=== PATIENT | female | born 1955 | race Caucasian/White ===

== ENCOUNTER → 2017-12-26 12:30 | Outpatient (CLI) | payer OTHER, SELFPAY ==
[2017-12-31 15:07] LABS: HPV Reflexed? NOT INDICATED
== END ==
PROVIDERS: Family Provider Internal Medicine; PCP Internal Medicine; Visit Provider Obstetrics & Gynecology
DX: Z12.4 Encounter for screening for malignant neoplasm of cervix (principal)
CPT/HCPCS: 88175; G0145

== ENCOUNTER → 2018-05-01 10:11 | Outpatient (CLI) | payer OTHER, SELFPAY ==
--- NOTE | 2018-05-01 10:15 | BI_ITS ---
MAMMOGRAPHY - BILATERAL SCREENING REASON FOR EXAM: Female, 62 years old. Routine annual screening examination. PERTINENT HISTORY: Non-contributory. TECHNIQUE: Digital bilateral breast lilibeth (3D mammographic acquisition) in the CC and MLO projections. 2-D mediolateral oblique (MLO) and craniocaudad (CC) views of both breasts were obtained. CAD: Full Field Digital Mammography with Computer Added Detection was performed. COMPARISON: Comparison is made with prior examination dated March 29, 2017 and March 28, 2016. FINDINGS: Breast Composition: The breasts are heterogeneously dense, which may obscure small masses. There are no dominant masses or suspicious calcifications. No other significant abnormalities are identified. There has been no significant change since the prior study. BI/SCREENING MAMM (CAD), BILAT IMPRESSION: Stable bilateral screening mammogram. Yearly follow-up mammogram recommended. (A) ASSESSMENT CATEGORY: BIRADS Category 1: Negative. A letter regarding these results will be sent to the patient by the facility within 30 days. Approximately 10% of breast cancers are not detected by mammography. A normal mammogram should not delay biopsy of a clinically suspicious abnormality. [id number] Electronically Signed: James Ware MD at 14:12 EDT Tel [phone], Service support ,
== END ==
PROVIDERS: Family Provider Internal Medicine; PCP Internal Medicine; Visit Provider Obstetrics & Gynecology
DX: Z12.31 Encounter for screening mammogram for malignant neoplasm of breast (principal)
CPT/HCPCS: 77063; 77067

== ENCOUNTER → 2018-12-01 10:42 | Outpatient (CLI) | payer OTHER, SELFPAY ==
--- NOTE | 2018-12-01 10:44 | US_ITS ---
STUDY: THYROID ULTRASOUND REASON FOR EXAM: Female, 63 years old. Goiter TECHNIQUE: Ultrasound evaluation of the thyroid was performed with real-time and static wright-scale imaging. COMPARISON: 2014 FINDINGS: RIGHT LOBE: The right lobe of the thyroid gland measures 4.7 x 1.7 x 2.2 cm. There is a homogeneous echotexture. There is a stable complex 2.6 x 1.4 x 1.7 cm nodule LEFT LOBE: The left lobe of the thyroid gland measures 3.4 x 0.8 x 1.0 cm. There is a homogeneous echotexture. There are no demonstrated solid, cystic or complex lesions. ISTHMUS: The isthmus measures 1.8 mm. The regional lymph nodes are normal. US/Thyroid IMPRESSION: Normal sized homogeneous thyroid gland with stable 2.6 cm solid nodule in the right lobe. Electronically Signed: Vincent Luo MD at 15:46 EST , Service support ,
== END ==
PROVIDERS: Family Provider Internal Medicine; PCP Internal Medicine; Referring Provider Internal Medicine; Visit Provider Internal Medicine
DX: E04.1 Nontoxic single thyroid nodule (principal)
CPT/HCPCS: 76536

== ENCOUNTER → 2019-03-10 | Outpatient (CLI) | payer OTHER, SELFPAY ==
[2019-03-10 14:39] LABS: AST(SGOT) 23 U/L (15-37); Alanine Aminotransfer ALT/SGPT 31 U/L (13-56); Albumin, Serum 3.6 g/dL (3.2-5.0); Alkaline Phosphatase 92 U/L (45-117); Anion Gap 7 (5-15); BUN 17 mg/dL (7-18); BUN/Creat Ratio 22.8 RATIO (10-20); Calcium,Total 9.1 mg/dL (8.5-10.1); Chloride 107 mmol/L (98-107); Creatinine, Serum 0.74 mg/dL (0.55-1.02); EST Glomerular Filtration Rate 84 mL/min (>60); Est Glom Filt Rate - Afr Amer 101 mL/min (>60); Globulin 3.7 g/dL (2.2-4.2); Glucose 61 mg/dL (74-106); Potassium 3.9 mmol/L (3.5-5.1); Protein, Total 7.3 g/dL (6.4-8.2); Sodium Level 141 mmol/L (136-145); T4 Free Direct 1.11 ng/dL (0.76-1.46); Thyroid Stim Hormone (TSH) 3.21 uIU/mL (0.358-3.74)
== END | disposition home or self-care (01) ==
LOC: LAB 13:29
PROVIDERS: Family Provider Internal Medicine; PCP Internal Medicine; Referring Provider Internal Medicine Endocrinology, Diabetes & Metabolism; Visit Provider Internal Medicine Endocrinology, Diabetes & Metabolism
DX: E03.8 Other specified hypothyroidism (principal)
CPT/HCPCS: 36415; 80053; 84439; 84443

== ENCOUNTER 2019-04-06 18:25 | Observation (INO) | payer OTHER, SELFPAY ==
[2019-04-06 18:26] VITALS: BP 130/69; PULSE 126; RESP 16; TEMP 37.6; O2SAT 92; BMI 24.7
[2019-04-06 18:59] VITALS: BP 123/67; PULSE 102; PULSE 104; RESP 16; TEMP 39.1; O2SAT 96
--- NOTE | 2019-04-06 19:23 | EKG12_ITS ---
Test Reason : Blood Pressure : / mmHG Vent. Rate : 103 BPM Atrial Rate : 103 BPM P-R Int : 124 ms QRS Dur : 084 ms QT Int : 322 ms P-R-T Axes : -17 030 062 degrees QTc Int : 421 ms Sinus tachycardia with occasional Premature ventricular complexes Low Voltage QRS (Limb Leads) Nonspecific ST and T wave abnormality Abnormal ECG Confirmed by ELIO VAZQUEZ, YENY ([id number]), editorial director ERIK CLARK ([id number]) on 04/08/2019 8:04:16 AM Referred By: JOSE Confirmed By:YENY BALLARD MD
--- NOTE | 2019-04-06 19:30 | RAD_ITS ---
STUDY: X-RAY CHEST REASON FOR EXAM: Female, 63 years old. Body aches TECHNIQUE: Frontal view COMPARISON: None. FINDINGS: The lungs are expanded. There is a right basilar rounded opacity possibly an infiltrate. A masslike density cannot be excluded. Normal size heart. Normal mediastinum and mati. Normal visualized pulmonary arteries. Normal visualized aortic arch and descending thoracic aorta. Normal visualized thoracic spine. Normal visualized ribs, clavicles, and shoulders. There is no demonstrated abnormality of the visualized soft tissue structures of the upper abdomen. RAD/Chest 1 View (Portable) IMPRESSION: There is a right basilar rounded opacity possibly an infiltrate. A masslike density cannot be excluded. Correlate with CT if clinically indicated. Electronically Signed: Jarrett Becerra DO at 19:48 EDT Tel [phone], Service support ,
--- NOTE | 2019-04-06 19:40 | ED.VISSUMM ---
- ER Visit Summary Date of Service: 04/06/19 Chief Complaint: Body aches, fever History of Present Illness: The patient is a 63 F presenting with body aches, fever. Patient states she feels terrible. She complains of aching all over. She has had temperatures up to 104 at home. She complains of nonproductive cough. She has nausea with no vomiting. She denies abdominal pain or diarrhea. She has urinary frequency with no dysuria. She complains of headache. She states this is not the worst headache of her life. She states she has been taking Tylenol and this intermittently improves her headache. No recent trauma. No history of anticoagulant use. She has chest pain only when she coughs. Her son had fever and similar symptoms a week ago. She denies other complaints. Physical Examination: Vitals are stable. Temperature 102.4. Heart rate 107. Alert no acute distress. HEENT exam is unremarkable. Neck is supple. No meningismus Lungs are clear and equal bilaterally. Heart is regular and tachycardic Abdomen is soft nontender nondistended. No guarding or rebound Extremities are unremarkable. Skin is warm and dry. No focal neurologic deficit. Remainder of exam is unremarkable. Emergency Department Course and Treatment: Patient was given IV fluids, Benadryl, Reglan, Tylenol. CBC normal except for 86.7% segs. Chemistries show sodium 131, glucose 122, creatinine 1.03. Troponin is negative. Rapid strep and flu were negative. Chicot was negative. Urinalysis is pending. Chest x-ray shows there is a right basilar rounded opacity possibly an infiltrate. A masslike density cannot be excluded. Patient was given Rocephin and Zithromax IV. She continues to be tachypneic. Discussed with the hospitalist for admission. Disposition: Admit Impression: Febrile illness, pneumonia This note was generated with [employer] dictation software. It may contain incorrect words, spelling, and punctuation that were not noted in review of the chart prior to signing ED Disposition - Plan for ED Patient: Referrals: Skyla Crawford DO [Primary Care Provider] -
[2019-04-06] MEDS: Metoclopramide 10 MG/2 ML Vial 5 MG IV (19:44)
[2019-04-06] MEDS: DiphenhydrAMINE 50 MG/ML Syringe 25 MG IV (19:44)
[2019-04-06] MEDS: 0.9% Normal Saline 1,000 ML 1000 ML IV (19:44)
[2019-04-06] MEDS: Acetaminophen 500 MG Tablet 1000 MG PO (19:48)
[2019-04-06 20:03] LABS: Anion Gap 8 (5-15); BUN 15 mg/dL (7-18); BUN/Creat Ratio 14.6 RATIO (10-20); Calcium,Total 9.1 mg/dL (8.5-10.1); Chloride 100 mmol/L (98-107); Creatinine, Serum 1.03 mg/dL (0.55-1.02); EST Glomerular Filtration Rate 57 mL/min (>60); Est Glom Filt Rate - Afr Amer 70 mL/min (>60); Glucose 122 mg/dL (74-106); Potassium 3.6 mmol/L (3.5-5.1); Sodium Level 131 mmol/L (136-145)
[2019-04-06 20:07] LABS: Absolute Lymphocyte Count 0.59 X10^3/ul (0.83-4.51); Absolute Neutrophil Count 7.9 X10^3/uL (2.0-7.7); Basophil# 0.02 X10^3/uL; Basophil% 0.2 % (0-1); Hematocrit 43.4 % (37-47); Hemoglobin 14.7 g/dl (12.0-15.0); Lymphocyte # 0.59 X10^3/ul (4.0); Lymphocyte % 6.5 % (19-41); Mean Corp Hgb Conc 33.9 g/gl (32-36); Mean Corpuscular Hgb 29.6 pg (27.0-32.0); Mean Corpuscular Volume 87.5 fL (81-99); Mean Platelet Vol. 10.3 fl (6.2-12.0); Monocyte# 0.59 X10^3/uL; Monocyte% 6.5 % (0-10); Neutrophil # 7.85 X10^3/uL (2.7-7.7); Neutrophil % 86.7 % (47-70); Platelet Count 193 K/mm3 (150-450); RBC Distribution Width SD 41.6 fl (35.1-43.9); Red Blood Count 4.96 M/mm3 (4.2-5.4); White Blood Count 9.1 K/mm3 (4.4-11.0)
[2019-04-06 20:14] LABS: Differential Indicated SCAN CRITERIA MET; POSITIVE COUNT NO; POSITIVE DIFFERENTIAL YES; POSITIVE MORPHOLOGY NO
[2019-04-06 20:32] VITALS: BP 107/68; PULSE 96; RESP 27; TEMP 37.7; O2SAT 96
[2019-04-06 20:43] LABS: Color, Urine Yellow (Yellow); Glucose, Dipstick Normal (Normal); Ketone-Dipstick 50 mg/dl (Negative); Leukocyte Esterase-Dipstick 25 /ul (Negative); Nitrite-Dipstick Negative (Negative); Occult Blood-Urine 150 /ul (Negative); Protein-Dipstick 30 mg/dl (Negative); Urine Clarity Clear (Clear); Urine Urobilinogen 1 mg/dl (Normal)
[2019-04-06 20:50] LABS: Differential Comment SCANNED
[2019-04-06 21:02] LABS: Urine Bilirubin Dipstick 1 mg/dL (Negative)
[2019-04-06 21:04] LABS: Red Blood Cells-Urine 0-5 SEEN /hpf (0-5); White Blood Cells 0-5 SEEN /hpf (0-5)
[2019-04-06 21:05] LABS: Bacteria 1+ /hpf (None Seen); Mucous, Urine 2+ /hpf (<or=2+); Squamous Epithelial Cells - UA 0-5 SEEN /hpf (5-10)
[2019-04-06 22:11] VITALS: BP 101/70; PULSE 83; RESP 16; TEMP 36.7; O2SAT 94
[2019-04-06] MEDS: Ceftriaxone 1 GM/50 ML BAG IV (22:12)
--- NOTE | 2019-04-06 22:42 | PCM.HP.STD ---
Problem List (1) Sepsis Status: Acute Qualifiers: Sepsis type: sepsis due to unspecified organism Qualified Code(s): A41.9 - Sepsis, unspecified organism (2) Pneumonia Status: Acute Qualifiers: Pneumonia type: due to unspecified organism Laterality: unspecified laterality Lung location: unspecified part of lung Qualified Code(s): J18.9 - Pneumonia, unspecified organism (3) HLD (hyperlipidemia) Status: Chronic Qualifiers: Hyperlipidemia type: unspecified Qualified Code(s): E78.5 - Hyperlipidemia, unspecified (4) Hypothyroidism Status: Chronic Qualifiers: Hypothyroidism type: unspecified Qualified Code(s): E03.9 - Hypothyroidism, unspecified History of Present Illness Date of Admission: 04/06/19 Chief Complaint: URI symptoms The patient is a 63 y/o F w/ PMHx: HLD, Hypothyroidism who presents to the [facility] ED on 04/06/19 with history of progressively worsening fevers, myalgias, arthralgias, dry ongoing cough with headache x 3 days, not improving with fever worsening with son with similar illness actually 1 week prior. Her son had had also a sore throat but she denies any sore throat. Work-up in the ED included T initially 99.6 but increased up to 102.4 in the ED with improvement to 98.1 following Tylenol administration, heart rate initially 126 with improvement 83, BP 130/69, respiratory rate 16, 92% on room air, CBC with W BC 9.1, hemoglobin 14.7, platelet 193 with left shift, BMP with sodium 131, BUN/Cr 15/1.03, glucose 122, Trop < 0.015, urinalysis with evidence of dehydration, pending complete, blood culture x2 pending per ED, rapid influenza negative, rapid group A strep negative with confirmatory culture pending, chest x-ray with right basilar rounded opacities to suspicious for infiltrate although masslike density cannot be excluded. In the ED patient administered normal saline, Reglan, Benadryl, Rocephin, azithromycin and Tylenol. Past Medical History Past Medical History (Chronic Problems): Chronic Problems HLD (hyperlipidemia) (Chronic) Hypothyroidism (Chronic) Allergies No Known Allergies Allergy (Verified 04/06/19 18:31) Home Medications: Ambulatory Orders Medication Instructions Recorded Atorvastatin Calcium [Lipitor] 10 mg PO QHS 04/06/19 Levothyroxine [Synthroid] 100 mcg PO DAILY 04/06/19 Surgical History: - - Morris teeth extraction, lap or scopic surgery prior for evaluation for infertility work-up. Psychiatric History: No pertinent psych hx HEAD OF [employer]IS[employer]CHAND[employer] History: No pertinent HEAD OF [employer]IS[employer]CH[employer] history Lives: Spouse/ Significant Other Smoking Status: Never smoker Tobacco Use: Non-smoker Alcohol: None Drugs: None - *Family History Maternal History Items: - - Patient is a maternal family history of heart disease, paroxysmal atrial fibrillation. Paternal History Items: - - Patient denies any market paternal family history including heart disease, diabetes or cancer. Review of Systems Constitutional: Reports: Anorexia, Chills, Fever, Malaise, Weakness, Fatigue. Denies: Weight Change HEENT: Denies: Head Aches, Sinus Congestion, Sinus Drainage Cardiovascular: Denies: Chest Pain, Palpitations Respiratory: Reports: Cough, Shortness of Breath, Shortness of breath at rest, Shortness of breath upon exertion. Denies: Sputum production Gastrointestinal: Reports: Nausea. Denies: Abdominal Pain, Vomiting Genitourinary: Denies: Dysuria Musculoskeletal: Reports: Joint Pain, Muscle pain. Denies: Joint Tenderness Skin: Denies: Rash, Wounds Neurological: Denies: Numbness, Tingling, Focal weakness Psychiatric: Denies: Anxiety, Depression, Homicidal Ideations, Suicidal Ideations Hematologic/ Lymphatic: Denies: Easy Bruising, Easy Bleeding VTE Information - Inpt Only VTE Present on Admission: No VTE Mechan Device Prophylaxis: SCD's VTE Pharm Prophylaxis ordered?: Yes Patient Problems: Active and Suspected Problems Sepsis (Acute) Pneumonia (Acute) Subjective: Seated upright in ED bed, fatigued appearing, ill-appearing. Objective: Physical Examination: General: awake, alert, oriented x 3 and cooperative, seated upright in ED bed, fatigued and ill-appearing. Skin: normal color, turgor, no icterus, cyanosis. HEENT: AT/NC, EOMI, PERRLA, dry MM, no carotid bruits or JVD noted. Lungs: Diminished breath sounds bilaterally, greater bilateral bases, right greater than left, rhonchorous breath sounds right base to mid posterior lung field, no wheezing. Heart: Mildly tachycardic with regular rhythm; no gallop, rub audible. Abdomen: soft, NTTP, ND, normal BS, no HSM. Extremities: no cyanosis, clubbing, or edema. Neurological: patient awake, alert, oriented x 3; cognitive function intact; pupils equally reactive to light and accomodation; cranial nerves II-XII grossly normal, moving all 4 extremities, no focal deficits, strength moderately to severe legal decrease secondary to acute presentation. Psychiatric: affect appears fatigued, no acute evidence of depressive or anxiety feelings. - Physical Exam Vital Signs Temp Pulse Resp BP Pulse Ox 98.1 F 83 16 101/70 94 04/06/19 22:11 04/06/19 22:11 04/06/19 22:11 04/06/19 22:11 04/06/19 22:11 Oxygen Flow Rate (L/min) 2 Oxygen Delivery Method Room Air Weight: 163 lb Body Mass Index (BMI) 24.7 Microbiology Past 72 Hours 04/06/19 20:30 Influenza Types A,B Direct FA ([facility]LIN) - Final Mucosa - Nasopharyngeal 04/06/19 20:35 Group A Streptococcus Rapid Screen - Preliminary Mucosa - Oral Laboratory Tests Past 24 Hrs 04/06/19 04/06/19 04/06/19 19:18 19:18 20:23 WBC 9.1 RBC 4.96 Hgb 14.7 Hct 43.4 MCV 87.5 MCH 29.6 MCHC 33.9 RDW 13.0 RDW Differential 41.6 Plt Count 193 MPV 10.3 Immature Gran % (Auto) 0.100 Neut % (Auto) 86.7 H Lymph % (Auto) 6.5 L Screven % (Auto) 6.5 Eos % (Auto) 0.0 Baso % (Auto) 0.2 Absolute Neuts (auto) 7.9 H Absolute Lymphs (auto) 0.59 L Total Counted Not Reportable Differential Comment SCANNED Sodium 131 L Potassium 3.6 Chloride 100 Carbon Dioxide 23.0 Anion Gap 8 BUN 15 Creatinine 1.03 H Estim Creat Clear Calc 56.40 Est GFR (MDRD) Af Amer 70 Est GFR (MDRD) Non-Af 57 L BUN/Creatinine Ratio 14.6 Glucose 122 H Calcium 9.1 Troponin I < 0.015 Urine Color Yellow Urine Clarity Clear Urine pH 5.0 Ur Specific [place] 1.020 Urine Protein 30 H Urine Glucose (UA) Normal Urine Ketones 50 H Urine Occult Blood 150 H Urine Nitrite Negative Urine Bilirubin 1 H Urine Urobilinogen 1 H Ur Leukocyte Esterase 25 H Urine RBC Pending Urine WBC Pending Ur Squamous Epith Cells Pending Urine Bacteria Pending Urine Mucus Pending Assessment/Plan All Active Problems Sepsis (Acute) Pneumonia (Acute) The patient is a 63 y/o F w/ PMHx: HLD, Hypothyroidism who presents to the [facility] ED on 04/06/19 with history of progressively worsening fevers, myalgias, arthralgias, dry ongoing cough with headache x 3 days, not improving with fever worsening with son with similar illness actually 1 week prior. (1) Acute Sepsis secondary to Community Acquired Pneumonia: Work-up in the ED included T initially 99.6 but increased up to 102.4 in the ED with improvement to 98.1 following Tylenol administration, heart rate initially 126 with improvement 83, BP 130/69, respiratory rate 16, 92% on room air, CBC with W BC 9.1, hemoglobin 14.7, platelet 193 with left shift, BMP with sodium 131, BUN/Cr 15/1.03, glucose 122, Trop < 0.015, urinalysis with evidence of dehydration, pending complete, blood culture x2 pending per ED, rapid influenza negative, rapid group A strep negative with confirmatory culture pending, chest x-ray with right basilar rounded opacities to suspicious for infiltrate although masslike density cannot be excluded. Will admit to [facility], maintain on oxygen with wean as tolerated to room air, continue ATC duonebs, PRN albuterol, maintained on IV Rocephin and Azithromycin, HOB, IS parameters w/ pending sputum cultures and urine antigens as well as respiratory viral panel. Bld cx x 2 obtained in the ED. (2) Hypothyroidism: Continue home synthroid regimen. (3) Hyperlipidemia: Continue home statin regimen. (4) GERD: Famotidine. (5) DVT Prophylaxis: SCDs, lovenox. Code Visit Inpatient E&M: 07587 Init Hosp L3
[2019-04-06 23:01] LABS: Internal QC Validated? YES +Cl - CLEAR BKGD; Monotest Negative (Negative)
[2019-04-07] VITALS (7 sets, daily range): BP systolic 117–119; BP diastolic 51–65; PULSE 92–106; RESP 16–18; TEMP 37.2–38; O2SAT 93–97; BMI 24.2
[2019-04-07] MEDS: 0.9% Normal Saline 1,000 ML 125 ML IV ×2 (01:24→10:07)
[2019-04-07] MEDS: Atorvastatin Calcium 10 MG Tablet PO (01:24)
[2019-04-07] MEDS: guaiFENesin 10 ML UDC (200MG/10ML) 20 ML PO (05:07)
[2019-04-07] MEDS: Levothyroxine 100 MCG Tablet PO (05:07)
[2019-04-07 06:26] LABS: Absolute Lymphocyte Count 0.64 X10^3/ul (0.83-4.51); Absolute Neutrophil Count 5.6 X10^3/uL (2.0-7.7); Basophil# 0.01 X10^3/uL; Basophil% 0.1 % (0-1); Hematocrit 38.7 % (37-47); Lymphocyte # 0.64 X10^3/ul (4.0); Lymphocyte % 9.5 % (19-41); Mean Corp Hgb Conc 33.6 g/gl (32-36); Mean Corpuscular Hgb 28.8 pg (27.0-32.0); Mean Corpuscular Volume 85.6 fL (81-99); Mean Platelet Vol. 9.8 fl (6.2-12.0); Monocyte# 0.44 X10^3/uL; Monocyte% 6.5 % (0-10); Neutrophil # 5.63 X10^3/uL (2.7-7.7); Neutrophil % 83.8 % (47-70); Platelet Count 168 K/mm3 (150-450); RBC Distribution Width SD 40.5 fl (35.1-43.9); Red Blood Count 4.52 M/mm3 (4.2-5.4); White Blood Count 6.7 K/mm3 (4.4-11.0)
[2019-04-07 06:28] LABS: POSITIVE COUNT NO; POSITIVE DIFFERENTIAL NO; POSITIVE MORPHOLOGY NO
[2019-04-07 06:47] LABS: Anion Gap 8 (5-15); BUN 13 mg/dL (7-18); BUN/Creat Ratio 17.6 RATIO (10-20); Calcium,Total 8.2 mg/dL (8.5-10.1); Chloride 105 mmol/L (98-107); Creatinine, Serum 0.74 mg/dL (0.55-1.02); EST Glomerular Filtration Rate 85 mL/min (>60); Est Glom Filt Rate - Afr Amer 102 mL/min (>60); Glucose 136 mg/dL (74-106); Potassium 3.3 mmol/L (3.5-5.1); Sodium Level 135 mmol/L (136-145)
[2019-04-07] MEDS: Ipratropium/Albuterol Sulfate 3 ML AMPUL.NEB INHALATION ×3 (07:02→14:46)
[2019-04-07] MEDS: Acetaminophen 325 MG Tablet 650 MG PO (08:14)
[2019-04-07] MEDS: Ondansetron 4 MG/2 ML Vial IV (08:15)
[2019-04-07] MEDS: Enoxaparin 40 MG/0.4 ML Syringe SC (08:15)
[2019-04-07] MEDS: Famotidine 20 MG Tablet PO (08:15)
--- NOTE | 2019-04-07 10:34 | CASEMGMT ---
RN CM Assessment Presentation: Pneumonia Intro role of CM and purpose of RN CM assessment. Pt is awake, alert and able to participate in assessment. Demographics, PCP and Pharmacy verified. Pt states she is very independent and plans to return home on dc. PCP: Dr. 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 Entered in chart. Insurance: MMO Prescription Benefit: yes LNOK: , Jatin Still Living Arrangements: Lives independently with her . Denies any care needs. Transportation: Drives DME: none HHC: none Patient DC goals: Home DC PLAN: Home. No dc needs identified. Campbell REYNAN RN ACM
--- NOTE | 2019-04-07 16:19 | DCINST_ITS ---
- Discharge Diagnoses Current Active Problems: Current Active and Chronic Problems Sepsis (Acute) Pneumonia (Acute) HLD (hyperlipidemia) (Chronic) Hypothyroidism (Chronic) You will use the following diet at home:: No restrictions Your food should be the consistency of: Regular Your liquids should be the consistency of: Regular/Thin Discharge Activity: Return to Normal Activity Weight Bearing Status: Full weight bearing Allergies/Adverse Reactions: Allergies No Known Allergies Allergy (Verified 04/06/19 18:31) Medications to take at Discharge Atorvastatin Calcium [Lipitor] 10 mg PO QHS 04/06/19 Levothyroxine [Synthroid] 100 mcg PO DAILY 04/06/19 Levofloxacin [Levaquin] 750 mg PO DAILY #6 tab 04/07/19 The following prescriptions were given: Levofloxacin [Levaquin] 750 mg PO DAILY #6 tab Transmission Status: Sent to [facility] Primary Care Physician: Skyla Crawford DO [Primary Care Provider] - Please follow up with your Primary Care Physician in: next week-get a chest x- ray repeated Test Results: Test results from this visit will be discussed in further detail at your follow- up appointment, if applicable.
--- NOTE | 2019-04-08 09:32 | PCM.DC.SUM ---
Discharge Date and Diagnosis Date of Admission: 04/06/19 Date of Discharge: 04/07/19 - Primary Discharge Diagnosis #1 acute sepsis secondary to community-acquired [id number]-[id number]-doesekyg bacterial #2 adenovirus tracheobronchitis #3 hypothyroidism #4 hyperlipidemia - Secondary Discharge Diagnosis Chronic Problems HLD (hyperlipidemia) (Chronic) Hypothyroidism (Chronic) Hospital Course and Treatment Operations: None Procedures: None Summary of Care Provided: The patient is a 63 year old F was seen in the emergency room at [facility] with a chief complaint of body aches, fever, and dry cough. Work-up in the emergency room included a chest x-ray which showed evidence of a right basilar opacity in keeping with pneumonia, chemistries showed a sodium of 131 glucose of 122 and creatinine of 1.03. Rapid strep and flu were negative. [place] test was negative. CBC was unremarkable. Patient was given IV Rocephin and Zithromax in the emergency room and she was admitted to [place] [address] for community-acquired pneumonia. She was given aerosol treatments and continued IV antibiotics, a respiratory panel was obtained which was positive for adenovirus. On 04/07/2019, patient was seen and examined: On examination she appeared in good health and spirits. Vital signs as documented. Skin warm and dry and without overt rashes. Neck without JVD. Lungs-faint inspiratory rales were noted at the patient's right lung base on auscultation. Heart exam notable for regular rhythm, normal sounds and absence of murmurs, rubs or gallops. Abdomen unremarkable and without evidence of organomegaly, masses, or abdominal aortic enlargement. Extremities nonedematous. Neuro: Cranial nerves II through XII are grossly intact, no focal motor deficits were noted, sensation to light touch and pinprick is intact. Psych: Patient is alert and oriented x3, she does not appear anxious or depressed Patient appeared stable for discharge on 04/07/2019, it was believed that she had a concomitant upper respiratory tract infection with adenovirus in addition to her right lower lobe pneumonia. - Physical Exam Vital Signs Temp Pulse Resp BP Pulse Ox 100.4 F H 92 18 118/65 97 04/07/19 14:29 04/07/19 14:46 04/07/19 14:46 04/07/19 14:29 04/07/19 14:29 Oxygen Flow Rate (L/min) 2 Oxygen Delivery Method Room Air Weight: 72.2 kg Body Mass Index (BMI) 24.2 Intake and Output for Last 24 Hours 04/06/19 04/07/19 04/08/19 23:59 23:59 23:59 Intake Total 2282 / 2282 Balance 2282 / 2282 Microbiology Past 72 Hours 04/07/19 12:15 Respiratory Panel (PCR) - Final Mucosa - Nose Adenovirus 04/06/19 20:35 Group A Streptococcus Rapid Screen - Preliminary Mucosa - Oral 04/07/19 06:20 Streptococcus pneumoniae Antigen (M - Final Urine, Clean Catch 04/07/19 06:20 Legionella Antigen - Final Urine, Random 04/06/19 20:30 Influenza Types A,B Direct FA ([facility]) - Final Mucosa - Nasopharyngeal Discharge Activity: Return to Normal Activity Weight Bearing Status: Full weight bearing Home Medications: Medications to take at Discharge Atorvastatin Calcium [Lipitor] 10 mg PO QHS 04/06/19 Levothyroxine [Synthroid] 100 mcg PO DAILY 04/06/19 Levofloxacin [Levaquin] 750 mg PO DAILY #6 tab 04/07/19 Ondansetron HCl [Zofran] 4 mg PO 4X/DAY PRN PRN #15 tab 04/07/19 Following Prescrptions Were Given to Patient: Levofloxacin [Levaquin] 750 mg PO DAILY #6 tab Transmission Status: Received by [facility] Ondansetron HCl [Zofran] 4 mg PO 4X/DAY PRN PRN #15 tab PRN Reason: Nausea Transmission Status: Received by [facility] Primary Care Physician: Skyla Crawford DO [Primary Care Provider] - Please follow up with your Primary Care Physician in: next week-get a chest x-ray repeated Disposition: Home Minutes spent on discharge:: 32 Patient Condition:: Stable Medical Necessity - Tobacco Use Smoking Status: Never smoker Tobacco Use: Non-smoker Meaningful Use Info Meaningful Use Diagnoses (Choose all that apply): None applicable Code Visit OBSV E&M: 61797 Observation care discharge
== END 2019-04-07 17:42 | disposition home or self-care (01) ==
LOC: ED 20:03 → MS3 23:58
PROVIDERS: Admitting Provider Family Medicine; Emergency Provider Emergency Medicine; Family Provider Internal Medicine; PCP Internal Medicine; Visit Provider Internal Medicine
DX: A41.9 Sepsis, unspecified organism (principal); J15.9 Unspecified bacterial pneumonia; E03.9 Hypothyroidism, unspecified; E78.5 Hyperlipidemia, unspecified; J20.8 Acute bronchitis due to other specified organisms; B97.0 Adenovirus as the cause of diseases classified elsewhere; R35.0 Frequency of micturition; Z79.899 Other long term (current) drug therapy; K21.9 Gastro-esophageal reflux disease without esophagitis; R94.31 Abnormal electrocardiogram [ECG] [EKG]
CPT/HCPCS: 36415; 71045; 80048; 81001; 84484; 85025; 86308; 87040; 87449; 87633; 87804; 87880; 93005; 94640; 94667; 94668; 96361; 96365; 96367; 96372; 96375; 96376; 99218; 99285; J7030; A4216; G0378; J2405

== ENCOUNTER → 2019-04-17 | Outpatient (CLI) | payer OTHER, SELFPAY ==
[2019-04-07 00:26] VITALS: BMI 24.2
--- NOTE | 2019-04-17 07:23 | CT_ITS ---
STUDY: CT CHEST WITH CONTRAST REASON FOR EXAM: Female, 63 years old. Abnormal chest x-ray, history of pneumonia with sepsis RADIATION DOSAGE (If Supplied By Facility): CTDIvol = ( 11.20 ) mGy, DLP = ( 317.73 ) mGycm TECHNIQUE: Transaxial imaging was performed following intravenous administration of 100ml IV Isovue 250. Individualized dose optimization techniques were used for this CT. COMPARISON: None. FINDINGS: There is a right lower lobe consolidation containing some air bronchograms. There is no demonstrated pleural abnormality. The heart size is within normal limits. There is a trace pericardial effusion. Normal mediastinum. Normal hilar regions. Normal enhanced pulmonary arteries. Normal aorta arch and descending thoracic aorta. There are degenerative changes of the visualized lower cervical spine. There is no demonstrated abnormality of the visualized upper abdomen. CT/Chest WITH Contrast IMPRESSION: Right lower lobe consolidation containing some air bronchograms. Findings are more likely represent pneumonic process and/or atelectasis. Underlying neoplastic process cannot be excluded. Close interval follow-up CT is recommended to assess for resolution. Trace pericardial effusion. Degenerative changes of the visualized lower cervical spine. Electronically Signed: Shai Slater MD at 17:07 EDT , Service support ,
== END | disposition home or self-care (01) ==
LOC: CT 07:22
PROVIDERS: Family Provider Internal Medicine; PCP Internal Medicine; Referring Provider Internal Medicine; Visit Provider Internal Medicine
DX: R93.89 Abnormal findings on diagnostic imaging of other specified body structures (principal)
CPT/HCPCS: 71260; Q9967

== ENCOUNTER → 2019-05-15 | Outpatient (CLI) | payer OTHER, SELFPAY ==
[2019-04-07 00:26] VITALS: BMI 24.2
--- NOTE | 2019-05-15 08:24 | BI_ITS ---
MAMMOGRAPHY - BILATERAL SCREENING REASON FOR EXAM: Female, 63 years old. Routine annual screening examination. PERTINENT HISTORY: Non-contributory. TECHNIQUE: Digital bilateral breast ralph (3D mammographic acquisition) in the CC and MLO projections. 2-D mediolateral oblique (MLO) and craniocaudad (CC) views of both breasts were obtained. CAD: Full Field Digital Mammography with Computer Added Detection was performed. COMPARISON: Comparison is made with prior examination dated May 01, 2000 8:15 and March 29, 2017. FINDINGS: Breast Composition: The breasts are heterogeneously dense, which may obscure small masses. There are no dominant masses or suspicious calcifications. No other significant abnormalities are identified. There has been no significant change since the prior study. BI/SCREEN MAMM (CAD) W/RALPH BILAT IMPRESSION: Stable bilateral screening mammogram. Yearly follow-up mammogram recommended. (A) ASSESSMENT CATEGORY: BIRADS Category 1: Negative. A letter regarding these results will be sent to the patient by the facility within 30 days. Approximately 10% of breast cancers are not detected by mammography. A normal mammogram should not delay biopsy of a clinically suspicious abnormality. [id number] Electronically Signed: James Ware, at 10:06 EDT , Service support ,
== END | disposition home or self-care (01) ==
LOC: OPBI 08:23
PROVIDERS: Family Provider Internal Medicine; PCP Internal Medicine; Referring Provider Obstetrics & Gynecology; Visit Provider Obstetrics & Gynecology
DX: Z12.31 Encounter for screening mammogram for malignant neoplasm of breast (principal)
CPT/HCPCS: 77063; 77067

== ENCOUNTER → 2019-06-01 | Outpatient (CLI) | payer OTHER, SELFPAY ==
[2019-04-07 00:26] VITALS: BMI 24.2
[2019-06-01 13:28] LABS: Vitamin D,25 Hydroxy 32.4 ng/mL (29.95-100.01)
[2019-06-01 13:29] LABS: ALB/GLOB Ratio 0.9 RATIO (0.9-2.4); AST(SGOT) 22 U/L (15-37); Alanine Aminotransfer ALT/SGPT 30 U/L (13-56); Albumin, Serum 3.6 g/dL (3.2-5.0); Alkaline Phosphatase 90 U/L (45-117); Anion Gap 2 (5-15); BUN 14 mg/dL (7-18); BUN/Creat Ratio 18.5 RATIO (10-20); Calcium,Total 8.8 mg/dL (8.5-10.1); Chloride 109 mmol/L (98-107); Creatinine, Serum 0.76 mg/dL (0.55-1.02); EST Glomerular Filtration Rate 82 mL/min (>60); Est Glom Filt Rate - Afr Amer 99 mL/min (>60); Glucose 73 mg/dL (74-106); Potassium 4.3 mmol/L (3.5-5.1); Protein, Total 7.6 g/dL (6.4-8.2); Sodium Level 141 mmol/L (136-145); Thyroid Stim Hormone (TSH) 1.56 uIU/mL (0.358-3.74)
== END | disposition home or self-care (01) ==
LOC: LAB 12:17
PROVIDERS: Family Provider Internal Medicine; PCP Internal Medicine; Referring Provider Internal Medicine Endocrinology, Diabetes & Metabolism; Visit Provider Internal Medicine Endocrinology, Diabetes & Metabolism
DX: E03.8 Other specified hypothyroidism (principal); E55.9 Vitamin D deficiency, unspecified
CPT/HCPCS: 36415; 80053; 82306; 84443

== ENCOUNTER → 2019-06-23 07:40 | Outpatient (CLI) | payer OTHER, SELFPAY ==
[2019-04-07 00:26] VITALS: BMI 24.2
--- NOTE | 2019-06-23 07:42 | CT_ITS ---
STUDY: CT CHEST WITH CONTRAST REASON FOR EXAM: Female, 63 years old. Sepsis secondary to pneumonia. Follow-up. RADIATION DOSAGE (If Supplied By Facility): CTDIvol = ( 11.14 ) mGy, DLP = ( 451.19 ) mGycm TECHNIQUE: Transaxial imaging was performed following intravenous administration of 100 IV Isovue 300. Multiplanar coronal and sagittal images were reformatted. Individualized dose optimization techniques were used for this CT. COMPARISON: CT of the chest, April 17, 2019. FINDINGS: The lungs are normal. There is no demonstrated pleural abnormality. Normal heart and pericardium. Normal mediastinum. Normal hilar regions. Normal enhanced pulmonary arteries. Normal aorta arch and descending thoracic aorta. Stable osseous structures. There is no demonstrated abnormality of the visualized upper abdomen. CT/Chest WITH Contrast IMPRESSION: Normal enhanced CT Chest examination. There is resolution of the right lower lobe infiltrate and pericardial effusion seen on the previous study. There are no new findings. Electronically Signed: Ponce Meek DO at 17:01 EDT Tel [phone], Service support ,
== END ==
PROVIDERS: Family Provider Internal Medicine; PCP Internal Medicine; Referring Provider Internal Medicine; Visit Provider Internal Medicine
DX: J18.9 Pneumonia, unspecified organism (principal)
CPT/HCPCS: 71260

== ENCOUNTER → 2020-05-20 08:04 | Outpatient (CLI) | payer OTHER, SELFPAY ==
[2019-04-07 00:26] VITALS: BMI 24.2
--- NOTE | 2020-05-20 08:18 | BI_ITS ---
MAMMOGRAPHY - BILATERAL SCREENING REASON FOR EXAM: Female, 64 years old. Routine annual screening examination. PERTINENT HISTORY: Non-contributory. TECHNIQUE: Digital bilateral breast ralph (3D mammographic acquisition) in the CC and MLO projections. 2-D mediolateral oblique (MLO) and craniocaudad (CC) views of both breasts were obtained. CAD: Full Field Digital Mammography with Computer Added Detection was performed. COMPARISON: Comparison is made with prior study dated 05/15/2019 and 05/01/2018. FINDINGS: Breast Composition: The breasts are heterogeneously dense, which may obscure small masses. There are no dominant masses or suspicious calcifications. Stable small benign appearing bilateral axillary lymph nodes. No other significant abnormalities are identified. There has been no significant change since the prior study. BI/SCREEN MAMM (CAD) W/RALPH BILAT IMPRESSION: Stable bilateral screening mammogram. Yearly follow-up mammogram recommended. (A) ASSESSMENT CATEGORY: BIRADS Category 2: Benign. A letter regarding these results will be sent to the patient by the facility within 30 days. Approximately 10% of breast cancers are not detected by mammography. A normal mammogram should not delay biopsy of a clinically suspicious abnormality. [id number] Electronically Signed: James Ware, at 10:32 EDT , Service support ,
== END ==
PROVIDERS: PCP Internal Medicine; Referring Provider Internal Medicine; Visit Provider Internal Medicine
DX: Z12.31 Encounter for screening mammogram for malignant neoplasm of breast (principal)
CPT/HCPCS: 77063; 77067

== ENCOUNTER → 2021-03-30 08:02 | Outpatient (CLI) | payer MEDICARE, BC, SELFPAY ==
[2019-04-07 00:26] VITALS: BMI 24.2
--- NOTE | 2021-03-30 08:04 | US_ITS ---
STUDY: ULTRASOUND OF THE FEMALE PELVIS - COMPLETE REASON FOR EXAM: Female, 65 years old. Pelvic pain. LMP: Patient is postmenopausal. TECHNIQUE: Transabdominal and Transvaginal TECHNICAL QUALITY: Adequate. COMPARISON: Comparison is made with prior study dated 11/16/2011. FINDINGS: The uterus is anteverted and is in a midline position. The uterus measures 6.2 cm x 5.2 cm x 3 cm. There is a Nabothian cyst of the cervix. The endometrium measures 7 mm in thickness, and is hyperechoic. There is no demonstrated endometrial mass. There is no demonstrated myometrial mass. I.U.D. - The patient does not have an I.U.D. The right ovary is visualized. The right ovary measures 1.4 cm x 1.4 cm x 1 cm. There is no right ovarian cyst or ovarian mass. There is no visualized right adnexal mass or complex lesion. There is normal arterial and normal venous vascularity. The left ovary is non-visualized. There is no fluid in the cul-de-sac. The pre void volume of the bladder was 360 ml. The post void volume of the bladder was ml. US/Pelvic (Non ) IMPRESSION: Normal female pelvis. Electronically Signed: James Ware MD at 11:14 EDT , Service support ,
--- NOTE | 2021-03-30 08:05 | US_ITS ---
STUDY: ULTRASOUND OF THE FEMALE PELVIS - COMPLETE REASON FOR EXAM: Female, 65 years old. Pelvic pain. LMP: Patient is postmenopausal. TECHNIQUE: Transabdominal and Transvaginal TECHNICAL QUALITY: Adequate. COMPARISON: Comparison is made with prior study dated 11/16/2011. FINDINGS: The uterus is anteverted and is in a midline position. The uterus measures 6.2 cm x 5.2 cm x 3 cm. There is a Nabothian cyst of the cervix. The endometrium measures 7 mm in thickness, and is hyperechoic. There is no demonstrated endometrial mass. There is no demonstrated myometrial mass. I.U.D. - The patient does not have an I.U.D. The right ovary is visualized. The right ovary measures 1.4 cm x 1.4 cm x 1 cm. There is no right ovarian cyst or ovarian mass. There is no visualized right adnexal mass or complex lesion. There is normal arterial and normal venous vascularity. The left ovary is non-visualized. There is no fluid in the cul-de-sac. The pre void volume of the bladder was 360 ml. The post void volume of the bladder was ml. US/Transvaginal Non- IMPRESSION: Normal female pelvis. Electronically Signed: James Ware MD at 11:14 EDT , Service support ,
== END ==
PROVIDERS: PCP Internal Medicine; Referring Provider Internal Medicine; Visit Provider Internal Medicine
DX: R10.2 Pelvic and perineal pain (principal)
CPT/HCPCS: 76830; 76856

== ENCOUNTER → 2021-06-12 07:53 | Outpatient (CLI) | payer MEDICARE, BC, SELFPAY ==
[2019-04-07 00:26] VITALS: BMI 24.2
--- NOTE | 2021-06-12 07:56 | BI_ITS ---
MAMMOGRAPHY - BILATERAL SCREENING 3-D TOMOSYNTHESIS REASON FOR EXAM: Female, 65 years old. SCREENING PERTINENT HISTORY: No significant family history. TECHNIQUE: 2-D mammograms and 3-D Tomosynthesis of the breast (s) were performed. CAD was performed. COMPARISON: 05/20/2020 FINDINGS: The breast composition is Extermely dense tissue. Scattered benign calcifications are seen. No dense spiculated masses or suspicious microcalcifications are identified. No architectural distortion is identified. There is no skin thickening or retraction. There has been no significant change since the prior study. BI/SCRN MAMM (CAD)W/RALPH BILAT IMPRESSION: No mammographic signs of malignancy. Routine yearly mammograms recommended. ASSESSMENT CATEGORY: BIRADS Category 1: Negative. A letter regarding these results will be sent to the patient by the facility within 30 days. FOLLOW UP RECOMMENDATION: Yearly follow up mammogram recommended. (A) Approximately 10% of breast cancers are not detected by mammography. A normal mammogram should not delay biopsy of a clinically suspicious abnormality. Electronically Signed: Dayday Bennett MD at 9:21 EDT Tel , Service support ,
== END ==
PROVIDERS: PCP Internal Medicine; Referring Provider Internal Medicine; Visit Provider Internal Medicine
DX: Z12.31 Encounter for screening mammogram for malignant neoplasm of breast (principal)
CPT/HCPCS: 77063; 77067

== ENCOUNTER → 2022-04-23 | Outpatient (CLI) | payer MEDICARE, BC, SELFPAY ==
--- NOTE | 2022-04-23 15:44 | CT_ITS ---
EXAM: CT ANGIOGRAPHY CHEST WITHOUT AND WITH INTRAVENOUS CONTRAST CLINICAL INDICATION: SYNCOPE AND COLLAPSE TECHNIQUE: Helically acquired angiography images were obtained of the chest without and with intravenous contrast. This CT exam was performed using one or more of the following dose reduction techniques: automated exposure control, adjustment of the mA and/or kV according to patient size, and/or use of iterative reconstruction technique. This report was created using [employer] report generation technology. MIP reconstructed images were created and reviewed. CONTRAST: IV 100mL Isovue-370 COMPARISON: None. FINDINGS: PULMONARY ARTERIES: Unremarkable. Normal in caliber. No evidence of pulmonary embolism. AORTA: Unremarkable. Normal in caliber. No evidence of dissection. GREAT VESSELS OF AORTIC ARCH: Unremarkable. Normal in caliber. No evidence of dissection. LUNGS AND PLEURAL SPACES: Unremarkable. No mass. No consolidation or edema. No pleural effusion or thickening. No pneumothorax. HEART: Unremarkable. Heart size is normal. No pericardial effusion. No signs of right heart strain, ratio of right ventricle to left ventricle measures less than 1. MEDIASTINUM: Unremarkable. No mediastinal or hilar adenopathy. Esophagus is unremarkable. No hiatal hernia. THYROID: Unremarkable. No thyroid lesions. BONES/JOINTS: Unremarkable. No suspicious lytic or blastic abnormality. CT/CTA Chest W/WO Contrast IMPRESSION: Negative CTA chest. Electronically Signed: Nilay Mosqueda MD at 17:35 EDT ,
[2022-04-23 16:25] LABS: CREATININE FINGERSTICK < 0.9 mg/dL (0.55-1.02); EGFR FINGERSTICK > 60.0000 mL/min (>60)
== END | disposition home or self-care (01) ==
LOC: CT 15:42
PROVIDERS: PCP Internal Medicine; Referring Provider Internal Medicine; Visit Provider Internal Medicine
DX: R55 Syncope and collapse (principal)
CPT/HCPCS: 71275; Q9967

== ENCOUNTER → 2022-04-25 | Outpatient (CLI) | payer MEDICARE, BC, SELFPAY ==
--- NOTE | 2022-04-25 07:24 | MRI_ITS ---
STUDY: MRA OF THE HEAD WITHOUT CONTRAST REASON FOR EXAM: Female, 66 years old. Cerebral aneurysm screening.? Aortic dissection. TECHNIQUE: 3-D xurp-in-eejrcw (TOF) imaging was performed with MIPs. The study was performed unenhanced. COMPARISON: None. FINDINGS: Normal bilateral petrous carotid arteries. Normal right cavernous carotid artery with a normal supraclinoid bifurcation. Normal left cavernous carotid artery with a normal supraclinoid bifurcation. Normal right A1 segment of the anterior cerebral artery. Normal left A1 segment of the anterior cerebral artery. Normal intact anterior communicating artery (ACOM). Normal bilateral A2 segments of the anterior cerebral arteries. Normal right M1 and M2 segments of the middle cerebral arteries, with a normal M1 bifurcation. Normal left M1 and M2 segments of the middle cerebral arteries, with a normal M1 bifurcation. Normal right posterior communicating artery (PCOM). Normal left posterior communicating artery (PCOM). Normal bilateral vertebral arteries. 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 This is a developmental variation of normal. Normal basilar artery. The visualized bilateral superior cerebellar (SCA) arteries are normal. Normal bilateral P1, P2 and visualized P3 segments of the posterior cerebral arteries. There is no demonstrated aneurysm of the [place]. There is no major vessel occlusion or hemodynamically significant stenosis. MRI/MRA Head ONLY without Contrast IMPRESSION: Normal MRA of the head Electronically Signed: Anthony Nielson MD at 9:32 EDT ,
--- NOTE | 2022-04-25 07:26 | MRI_ITS ---
STUDY: MRA NECK WITH AND WITHOUT CONTRAST REASON FOR EXAM: Female, 66 years old. SYNCOPE AND COLLAPSE TECHNIQUE: 3-D koed-jo-difypr (TOF) imaging was performed in an 1.5 T MRI scanner. 15CC IV DOTAREM was administered for the contrast enhanced images. COMPARISON: None. FINDINGS: RIGHT CAROTID ARTERIES: Normal right common carotid artery (CCA). Normal right carotid bulb. Normal origin of the right internal carotid (ICA) artery without a hemodynamically significant stenosis. Normal visualized cervical portion of the right internal carotid artery. Normal origin of the right external carotid artery (ECA). LEFT CAROTID ARTERIES: Normal left common carotid artery (CCA). Normal left carotid bulb. Normal origin of the left internal carotid (ICA) artery without a hemodynamically significant stenosis. Normal visualized cervical portion of the left internal carotid artery. Normal origin of the left external carotid artery (ECA). VERTEBRAL ARTERIES: Normal antegrade flow within the bilateral vertebral artery without a hemodynamically significant stenosis. The left is dominant. MRI/MRA Neck WITH and W/O Contrast IMPRESSION: 1. Normal bilateral cervical carotid and vertebral arteries. 2. Normal aortic arch and origins of the great vessels. Electronically Signed: Anthony Nielson MD at 9:33 EDT ,
[2022-04-25 07:50] LABS: CREATININE FINGERSTICK < 0.9 mg/dL (0.55-1.02); EGFR FINGERSTICK > 60.0000 mL/min (>60)
== END | disposition home or self-care (01) ==
PROVIDERS: PCP Internal Medicine; Referring Provider Internal Medicine; Visit Provider Internal Medicine
DX: R55 Syncope and collapse (principal); Z82.49 Family history of ischemic heart disease and other diseases of the circulatory system
CPT/HCPCS: 70544; 70549; A9575; A4216

== ENCOUNTER → 2022-05-07 | Outpatient (CLI) | payer MEDICARE, BC, SELFPAY ==
--- NOTE | 2022-05-07 12:39 | ECHOD_ITS ---
Reason For Study: CHEST PAIN Procedure This was a 2D Doppler, Color Flow transthoracic echocardiogram. Exam performed in department. Left Ventricle Normal LV size. Left ventricular systolic function is normal. The estimated ejection fraction is 60 %. No regional wall motion abnormalities noted. Right Ventricle Normal RV size. Normal systolic function. Atria Normal left atrium. Normal right atrium. Mitral Valve Normal mitral valve. Tricuspid Valve Normal tricuspid valve. Aortic Valve Normal aortic valve. Pulmonic Valve Normal pulmonic valve. Great Vessels Normal aortic root. The pulmonary artery is normal size. Normal inferior vena cava. Pericardium/Pleural No pericardial effusion. MMode/2D Measurements & Calculations LVIDd: 4.6 cm IVSd: 0.89 cm Ao root diam: 2.8 cm LVIDs: 2.4 cm LVPWd: 0.88 cm RVDd: 2.6 cm FS: 46.8 % LAV(MOD-sp4): 23.7 ml LVAd ap4: 24.2 cm2 SV(MOD-sp4): 45.1 ml LVLd ap4: 6.8 cm EDV(MOD-sp4): 71.0 ml EDV(sp4-el): 73.0 ml LVAs ap4: 12.4 cm2 LVLs ap4: 5.3 cm ESV(MOD-sp4): 25.9 ml ESV(sp4-el): 24.6 ml EF(MOD-sp4): 63.6 % EF(sp4-el): 66.4 % SV(sp4-el): 48.5 ml LA A4 area: 11.0 cm2 LA dimension(2D): 3.0 cm RA A4 area: 11.3 cm2 Time Measurements MV dec time: 0.21 sec Doppler Measurements & Calculations MV E max eh: 75.1 cm/sec Lat Peak E' Eh: 10.6 cm/sec Med Peak E' Eh: 6.3 cm/sec MV A max eh: 73.5 cm/sec E/E' lat: 7.1 E/E' med: 12.0 MV E/A: 1.0 MV V2 max: 87.7 cm/sec Ao V2 max: 144.6 cm/sec MV max P.1 mmHg MV dec slope: 363.2 cm/sec2 Ao max P.4 mmHg MV V2 mean: 58.0 cm/sec Ao V2 mean: 102.5 cm/sec MV mean P.5 mmHg Ao mean P.8 mmHg MV V2 VTI: 25.1 cm Ao V2 VTI: 35.1 cm LV V1 max: 118.6 cm/sec MR max eh: 524.2 cm/sec PA V2 max: 128.7 cm/sec LV V1 max P.6 mmHg MR max P.9 mmHg PA V2 mean: 85.9 cm/sec LV V1 mean P.1 mmHg LV V1 mean: 81.4 cm/sec LV V1 VTI: 26.3 cm TR max eh: 196.4 cm/sec TR max P.4 mmHg ECHO/Echo Complete Interpretation Summary Normal LV size. Left ventricular systolic function is normal. The estimated ejection fraction is 60 %. Structurally normal valves. Ordering Physician: Skyla Crawford Referring Physician: Skyla Crawford M.D. Performed By: Zari Arias RCS
== END | disposition home or self-care (01) ==
LOC: CVS 12:37
PROVIDERS: PCP Internal Medicine; Visit Provider Internal Medicine
DX: R07.9 Chest pain, unspecified (principal)
CPT/HCPCS: 93306

== ENCOUNTER → 2022-08-02 | Outpatient (CLI) | payer MEDICARE, BC, SELFPAY ==
--- NOTE | 2022-08-02 08:54 | US_ITS ---
STUDY: ABDOMINAL ULTRASOUND - RIGHT UPPER QUADRANT REASON FOR VISIT: Female, 66 years old BLOATING X SEVERAL MONTHS TECHNIQUE: Ultrasound evaluation of the right upper quadrant was performed with real-time and static wright-scale imaging. TECHNICAL QUALITY: Adequate. COMPARISON: None. FINDINGS: Liver: The liver measures 14.7 cm. There is normal echogenicity of the liver. The bile ducts are within normal limits. There is hepatic color flow. The direction of portal flow is hepatopetal. 1.8 cm cyst in the right lobe of the liver. Gallbladder: Normal distended gallbladder. The gallbladder wall measures 2 mm. There is a negative sonographic Lafleur''s sign. There is no pericholecystic fluid. There are no gallstones. Common Bile Duct (C.B.D.): The common bile duct measures 4 mm. Pancreas: Normal size of the head, body and tail of the pancreas. There is normal echogenicity of the pancreas. There is no demonstrated pancreatic mass or cyst. Right Kidney: Normal size of the right kidney. The right kidney measures 10.5 cm. Normal renal cortex. The right cortex measures 1.5 cm. 1.6 cm round hyperechoic mass in the lower pole the right kidney likely consistent with an angiomyolipoma. Correlation with renal mass protocol CT is recommended. There is no right hydronephrosis. 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 Electronically Signed: Dayday Bennett MD at 10:13 EDT ,
== END | disposition home or self-care (01) ==
LOC: US 08:49
PROVIDERS: PCP Internal Medicine; Referring Provider Internal Medicine; Visit Provider Internal Medicine
DX: R14.0 Abdominal distension (gaseous) (principal)
CPT/HCPCS: 76705

== ENCOUNTER → 2022-08-06 | Outpatient (CLI) | payer MEDICARE, BC, SELFPAY ==
--- NOTE | 2022-08-06 11:14 | US_ITS ---
STUDY: ULTRASOUND OF THE FEMALE PELVIS - COMPLETE REASON FOR EXAM: Female, 66 years old. BLOATING LMP: Patient is postmenopausal. TECHNIQUE: Transabdominal and Transvaginal TECHNICAL QUALITY: Adequate. COMPARISON: None. FINDINGS: The uterus is anteverted and is in a midline position. The uterus measures 5.9 cm x 4.8 cm x 3.5 cm. There is a Nabothian cyst of the cervix. The endometrium is thickened and measures 6 mm in thickness, and is hyperechoic. There is no demonstrated endometrial mass. There is a 1.8 cm x 1.8 cm x 1.6 cm demonstrate a fibroid along the right side of the uterus. This also evidence of a 1.1 cm x 1.1 cm x 1.1 cm fibroid in the left aspect of the uterus. I.U.D. - The patient does not have an I.U.D. The right ovary is visualized. The right ovary measures 1.9 cm x 1.5 cm x 1.0 cm. There is no right ovarian cyst or ovarian mass. There is no visualized right adnexal mass or complex lesion. There is normal arterial and normal venous vascularity. The left ovary is non-visualized. There is no fluid in the cul-de-sac. The pre void volume of the bladder was 516 ml. US/Pelvic (Non ) IMPRESSION: Thickened endometrium. Fibroid uterus. Electronically Signed: James Ware MD at 15:21 EDT ,
--- NOTE | 2022-08-06 11:14 | US_ITS ---
STUDY: ULTRASOUND OF THE FEMALE PELVIS - COMPLETE REASON FOR EXAM: Female, 66 years old. BLOATING LMP: Patient is postmenopausal. TECHNIQUE: Transabdominal and Transvaginal TECHNICAL QUALITY: Adequate. COMPARISON: None. FINDINGS: The uterus is anteverted and is in a midline position. The uterus measures 5.9 cm x 4.8 cm x 3.5 cm. There is a Nabothian cyst of the cervix. The endometrium is thickened and measures 6 mm in thickness, and is hyperechoic. There is no demonstrated endometrial mass. There is a 1.8 cm x 1.8 cm x 1.6 cm demonstrate a fibroid along the right side of the uterus. This also evidence of a 1.1 cm x 1.1 cm x 1.1 cm fibroid in the left aspect of the uterus. I.U.D. - The patient does not have an I.U.D. The right ovary is visualized. The right ovary measures 1.9 cm x 1.5 cm x 1.0 cm. There is no right ovarian cyst or ovarian mass. There is no visualized right adnexal mass or complex lesion. There is normal arterial and normal venous vascularity. The left ovary is non-visualized. There is no fluid in the cul-de-sac. The pre void volume of the bladder was 516 ml. US/Transvaginal Non- IMPRESSION: Thickened endometrium. Fibroid uterus. Electronically Signed: James Ware MD at 15:21 EDT ,
--- NOTE | 2022-08-06 12:00 | CT_ITS ---
STUDY: CT ABDOMEN WITH CONTRAST REASON FOR EXAM: Female, 66 years old. Suspected angiomyolipoma in lower pole of R kidney- CT recommended RADIATION DOSAGE (If Supplied By Facility): CTDIvol = ( 12.21 ) mGy, DLP = ( 380.11 ) mGycm TECHNIQUE: Transaxial images were obtained post I.V. administration of IV 100mL Isovue-300, and oral contrast. Sagittal and coronal images were reconstructed. Individualized dose optimization techniques were used for this CT. COMPARISON: Comparison is made with prior sonogram dated 08/02/2022. FINDINGS: The visualized lung bases are unremarkable. The visualized portions of the heart are within normal limits. There is a 1.3 cm x 1.4 cm cyst in the inferior lateral aspect of the right lobe of the liver. Normal gallbladder and extrahepatic biliary system. Normal spleen. Normal pancreas. Normal bilateral adrenal glands. There is a 1.4 cm x 1.3 cm solid hypodensity in the peripheral lateral aspect of the lower pole of the right kidney. This does not measure fat density. A neoplastic process should be ruled out.. There is a 3.8 mm calculus in the lower pole of the left kidney. Normal visualized stomach. Normal small intestine. Normal colon. The appendix is visualized and appears normal. There is diffuse atherosclerotic calcification of the abdominal aorta, without a demonstrated aneurysm. Normal inferior vena cava. Normal retroperitoneum. Normal abdominal wall. Normal osseous structures. CT/Abdomen WITH IV Contrast IMPRESSION: 1.3 cm x 1.4 cm cyst in the peripheral inferior aspect of the right lobe of the liver. 1.4 cm x 1.3 some are solid hypodensity in the peripheral lateral aspect of the lower pole of the right kidney. Correlation with a MRI of the kidneys recommended with fat saturation protocol.. This is nodule as an attenuation coefficient of a solid nodule. A neoplastic process should be ruled out. 3.8 mm calculus in the lower pole of the left kidney. Electronically Signed: James Ware MD at 13:13 EDT ,
== END | disposition home or self-care (01) ==
PROVIDERS: PCP Internal Medicine; Referring Provider Internal Medicine; Visit Provider Internal Medicine
DX: R14.0 Abdominal distension (gaseous) (principal); R93.5 Abnormal findings on diagnostic imaging of other abdominal regions, including retroperitoneum
CPT/HCPCS: 74160; 76830; 76856; Q9967

== ENCOUNTER → 2022-08-23 | Outpatient (CLI) | payer MEDICARE, BC, SELFPAY ==
--- NOTE | 2022-08-23 07:05 | BI_ITS ---
MAMMOGRAPHY - BILATERAL SCREENING REASON FOR EXAM: Female, 67 years old. Routine annual screening examination. PERTINENT HISTORY: Non-contributory. TECHNIQUE: Digital bilateral breast ralph (3D mammographic acquisition) in the CC and MLO projections. 2-D mediolateral oblique (MLO) and craniocaudad (CC) views of both breasts were obtained. CAD: Full Field Digital Mammography with Computer Added Detection was performed. COMPARISON: Comparison is made with prior study dated 06/12/2021 and 05/20/2020. FINDINGS: Breast Composition: The breasts are extremely dense, which lowers the sensitivity of mammography. There are no dominant masses or suspicious calcifications. Stable small benign-appearing bilateral axillary lymph nodes. No other significant abnormalities are identified. There has been no significant change since the prior study. BI/SCRN MAMM (CAD)W/RALPH BILAT IMPRESSION: Stable bilateral screening mammogram. Yearly follow-up mammogram recommended. (A) ASSESSMENT CATEGORY: BIRADS Category 2: Benign. A letter regarding these results will be sent to the patient by the facility within 30 days. Approximately 10% of breast cancers are not detected by mammography. A normal mammogram should not delay biopsy of a clinically suspicious abnormality. [id number] Electronically Signed: James Ware MD at 8:16 EST ,
== END | disposition home or self-care (01) ==
LOC: OPBI 07:03
PROVIDERS: PCP Internal Medicine; Visit Provider Internal Medicine
DX: Z12.31 Encounter for screening mammogram for malignant neoplasm of breast (principal)
CPT/HCPCS: 77063; 77067

== ENCOUNTER → 2022-10-23 | Outpatient (CLI) | payer MEDICARE, BC, SELFPAY ==
--- NOTE | 2022-10-23 12:13 | US_ITS ---
STUDY: ULTRASOUND OF THE FEMALE PELVIS - COMPLETE REASON FOR EXAM: Female, 67 years old. THICKENED ENDO LMP: Patient is postmenopausal. TECHNIQUE: Transabdominal and Transvaginal TECHNICAL QUALITY: Adequate. COMPARISON: Comparison is made with prior examination of 08/06/2022. FINDINGS: The uterus is anteverted and is tilted to the right side of the pelvis. The uterus measures 6.1 cm x 4.6 cm x 3.3 cm. There is a Nabothian cyst of the cervix. The endometrium measures 8 mm in thickness, and is hyperechoic. There is a 4 mm x 4 mm x 4 mm endometrial cyst. There is a 1.5 cm x 1.7 cm x 1.9 cm pedunculated uterine fibroid. This also evidence of a 1.5 cm x 1.3 cm x 1 cm fibroid. I.U.D. - The patient does not have an I.U.D. The right ovary is visualized. The right ovary measures 1.1 cm x 1.2 cm x 1.6 cm. There is no right ovarian cyst or ovarian mass. There is no visualized right adnexal mass or complex lesion. There is normal arterial and normal venous vascularity. The left ovary is non-visualized. There is no fluid in the cul-de-sac. The pre void volume of the bladder was 264 ml. US/Pelvic (Non ) IMPRESSION: Thickened endometrium measuring 8 mm with a small cystic change in the endometrium. Uterine fibroids. Electronically Signed: James Ware MD at 16:29 EST ,
== END | disposition home or self-care (01) ==
LOC: OPUS 12:10
PROVIDERS: PCP Internal Medicine; Visit Provider Nurse Practitioner Women's Health
DX: Z78.0 Asymptomatic menopausal state (principal); D25.9 Leiomyoma of uterus, unspecified; R93.89 Abnormal findings on diagnostic imaging of other specified body structures
CPT/HCPCS: 76830; 76856

== ENCOUNTER 2022-11-20 07:33 | Day surgery (SDC) | payer MEDICARE, BC, SELFPAY ==
[2022-11-20 08:05] VITALS: BP 122/75; PULSE 67; RESP 16; TEMP 36.4; O2SAT 97; BMI 25.2
[2022-11-20] MEDS: Lactated Ringers 1,000 ML 15 ML IV (08:08)
[2022-11-20 08:14] LABS: Hematocrit 41.8 % (37-47); Mean Corp Hgb Conc 33.5 g/dL (32-36); Mean Corpuscular Hgb 29.8 pg (27.0-32.0); Mean Corpuscular Volume 88.9 fL (81-99); Mean Platelet Vol. 9.7 fl (6.2-12.0); Platelet Count 212 K/mm3 (150-450); RBC Distribution Width CV 12.9 % (11.6-14.6); RBC Distribution Width SD 41.9 fl (35.1-43.9); White Blood Count 6.5 K/mm3 (4.4-11.0)
--- NOTE | 2022-11-20 08:31 | HP.PCM_ITS ---
History and Physical Date of Admission: 11/20/22 Intake Vital Signs ? 10/31/2308:56 10/31/2308:56 Height 5 ft 8 in 5 ft 8 in Weight: 164 lb 8 oz ? BMI 25.0 ? BP 130/71 H ? Intake Visit Reasons:?pre op Public Area Supervisor Required: No Is patient in pain?: No Allergies No Known Allergies Allergy (Verified 10/31/22 09:56) Medications atorvastatin 10 mg tablet 10 mg PO QHS 04/06/19 [History Confirmed 10/31/22] levothyroxine 100 mcg tablet 100 mcg PO DAILY 04/06/19 [History Confirmed 10/31/22] misoprostol 200 mcg tablet (Cytotec) 200 mcg PO ONCE #1 TAB 10/31/22 [Rx Confirmed 10/31/22] Is last menstrual period known: No Post menopausal: Yes Patient : No : No [facility] Surgical History? H/O laparoscopy Social History? household members:? spouse number of children:? 1 current occupational status:? 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 Never smoker alcohol intake:? current alcohol intake frequency: holidays/special occasions only substance use type:? does not use seatbelt use:? always do you feel safe at home:? Yes additional social history:? [employer]Retired HPI pre op Details: MANDI JUSTIN is a 67 year old who presents for pre-op exam. She has a thickened endometrium found on ultrasound that was performed for pelvic bloating. The ovaries were overall normal. the lining was 6 mm and office EMB was not able to be performed due to cervical stenosis per Faye Alegre. Repeat ultrasound showed that the lining thickened further to 8 mm and there was also a cystic lesion present within the endometrium. The decision was made to proceed with hysteroscopy D&C. ROS Const ROS Unobtainable: All systems reviewed & are unremarkable except as noted in H Resp Resp: Reports system reviewed and no additional complaints, except as documented; Denies cough GI GI: Reports as per HPI Psych Psych: Reports system reviewed and no additional complaints, except as documented Exam Const General: cooperative, healthy appearing, comfortable and no acute distress Resp Effort & Inspection: normal respiratory effort Skin General: no rashes or lesions noted Psych Appearance: grossly normal Speech and Movement: speech and movement normal Coding Level of Care Code Off vis,est,level 4 Diagnoses Cervical stenosis (uterine cervix)? N88.2 Endometrial thickening on ultrasound? R93.89 Assessment and Plan Assessment and Plan (1) Cervical stenosis (uterine cervix): ?Status:?Acute ?Comment: <3mm, displaced posterior and to left ?Plan: will need cytotec preoperatively. (2) Endometrial thickening on ultrasound: ?Status:?Acute ?Comment: 6mm lining on US. Failed EMB. Rpt US early Oct 2022 and lining increased, will need hysteroscopy D&C.? She has had no bleeding ? ? ? Medications: New misoprostol (Cytotec) 200 mcg? PO ONCE 1 TAB 0RF ? ? Plan plan for hysteroscopy D&C. After discussing the patient's diagnosis and treatment plan options, patient wishes to proceed with surgical management.? I have discussed with the patient the risks, benefits, and alternatives of the procedure which include but are not limited to risks of anesthesia, bleeding, infection, possible damage to bowel, bladder, or surrounding vasculature which could lead to additional surgery to evaluate any complications.? Patient agrees to procedure and wishes to proceed.? ACOG/uptodate references given for additional information regarding procedure.
--- NOTE | 2022-11-20 09:15 | PCM.OP.BLANK ---
Operative Report Date of Procedure: 11/20/22 preoperative diagnosis: bloating and thickened endometrium, stenotic cervix in the office Postoperative diagnosis: bloating and thickened endometrium, stenotic cervix in the office Hysteroscopy Dilation and curettage Surgeon: Dr. Karley Edwards DO EBL: minimal urine output: 10cc findings: atrophic appearing uterus with uterine polyp specimens removed: endometrial curettings Details of the procedure: Patient was prepped and draped in a normal sterile fashion under MAC anesthesia. A weighted speculum was placed in the vagina and the anterior lip of the cervix was grasped with a single-tooth tenaculum. A paracervical block was placed with 1% lidocaine. Cervix was progressively dilated to allow passage of a 5 mm hysteroscope. The lining was fully visualized and noted to have an atrophic appearing lining but with a polyp at the lower uterine segment. Uterus sounded to 8 cm. Curettage was performed and specimen was sent to pathology. All instruments were removed from the vagina and excellent hemostasis was noted. Patient was awoken and taken to recovery in stable condition. Multi Select Codes Urinary/Genital Urinary/Genital CPT Codes: 44262 Hysteroscopy,EMC, Polypectomy
--- NOTE | 2022-11-20 09:20 | EMB_PTH ---
PATIENT: MANDI JUSTIN [place] [facility] [id number] AGE/SX: 67/F ROOM: RE11/20/[address]: Dr. Karley Edwards DO : 1955 BED: DIS: 11/20/2022 SPEC #: [id number] RECD: 11/20/22 14:00 STATUS: ELPIDIO BLAKE #: [id number] JORGE: 11/20/22 09:[address]: Karley Edwards DEPT: SURGICAL PATHOLOGY RECD BY: Keyon Bourgeois ENTERED: 11/21/22 08:59 SP TYPE: ENDOM BX/C OTHR DR: Dr. Skyla Crawford DO Tissues: Endometrium, NOS Procedures: Surgery Specimen Level IV HEADER OPERATION: Hysteroscopy, D & C PRE-OP DIAGNOSIS: Cervical stenosis, thickened endometrium TISSUE SUBMITTED: Endometrial curettings MICROSCOPIC DIAGNOSIS Endometrial curettings: Fragments of endometrial polyp with simple cystic endometrial hyperplasia without atypia. Fragments of benign endocervical epithelium and mucus. See comment. Leslie 11/22/2022 COMMENT The specimen predominantly consists of mucoid tissue. Case discussed with Dr. Edwards?s nurse on 12/11/2022. MICROSCOPIC DESCRIPTION Slides are reviewed. GROSS DESCRIPTION Received in fixative is one container labeled with the patient's name and designated endometrial curettings. The specimen consists of multiple irregular fragments of handy mucoid tissue that in aggregate measure 5 x 3 x 0.3 cm. Also received is a polyp measuring 2.0 x 1.5 x 0.3 cm. The specimen is totally submitted in three cassettes. Cassette 3 contains the polyp. / GLADIS:emanuel 11/21/2022 TC:5 CPT: 84171
[2022-11-20] MEDS: Lidocaine 1% (30 ml sdv) 30 ML Vial (09:30)
--- NOTE | 2022-11-20 09:41 | DCINST_ITS ---
Discharge Instructions Diet Discharge Diet: No restrictions Activity Discharge Activity: Return to Normal Activity, May Shower and May Take a Tub Bath (after 1 week) May resume sexual activity in: 1-2 weeks Weight Bearing Status: Weight bearing as tolerated Lifting Restrictions: none Dressing / Incision Call your doctor if you observe: Fever of 101 or Higher, Using more than 1 pad per hour, Shortness of breath and Uncontrolled pain Follow Up Care Please Follow Up With: Karley Edwards DO When: Call [phone] to schedule appointment. Test Results: Test results from this visit will be discussed in further detail at your follow- up appointment, if applicable. Discharge Plan Admission Primary Reason for Your Visit: hysteroscopy Dilation and curettage Attending Provider: Karley Edwards Primary Care Provider: Skyla Crawford Discharge Orders/Prescriptions Prescriptions: New oxycodone-acetaminophen [Percocet] 5-325 mg tablet 1 tab PO Q4H PRN (Reason: pain) 3 Days Qty: 10 0RF Rx Instructions: 1-2 tabs q 4 hrs as needed for pain naproxen 500 mg tablet 500 mg PO BID PRN (Reason: pain) Qty: 15 0RF Continued atorvastatin 10 MG tablet 10 mg PO QHS levothyroxine 100 MCG tablet 75 mcg PO DAILY escitalopram oxalate 10 mg tablet 10 mg PO DAILY misoprostol 200 mcg tablet 200 mcg PO UD Label Comments: TAKE 1 TABLET BY MOUTH ONCE DAILY Referrals / Follow Up: Skyla Crawford DO [Primary Care Provider] - Disposition Disposition (needs filled in before D/C Order can be placed): Home, Self Care
[2022-11-20 09:50] VITALS: BP 101/65; BP 122/75; RESP 16; TEMP 36.3; O2SAT 64
[2022-11-20 09:55] VITALS: BP 107/70; BP 122/75; PULSE 86; RESP 16; O2SAT 94
[2022-11-20 10:00] VITALS: BP 122/75; BP 124/79; PULSE 69; RESP 16; O2SAT 98
[2022-11-20 10:07] VITALS: BP 122/75; BP 127/79; PULSE 64; RESP 16; TEMP 36.2; O2SAT 95
[2022-11-20 11:11] VITALS: BP 119/60; BP 122/75; PULSE 63; RESP 18; TEMP 36; O2SAT 98
--- NOTE | 2022-11-20 11:22 | SUR.PHASEII ---
ORDERS FOR MEDICATIONS WERE ENTERED AFTER PATIENT WAS WHEELED OUT FOR DISCHARGE. THIS RN CALLED AND THEY WERE INSTRUCTED ON PICKING UP THE PRESCRIPTION FROM THE PHARMACY AT THE HOSPITAL.
== END 2022-11-20 11:13 | disposition home or self-care (01) ==
LOC: SDC 07:33 → AC 07:35
PROVIDERS: PCP Internal Medicine; Referring Provider Obstetrics & Gynecology; Visit Provider Obstetrics & Gynecology
PROC: 0UDB8ZZ Extraction of Endometrium, Via Natural or Artificial Opening Endoscopic (ICD-10-PCS; CPT 58558; principal; 2022-11-20 09:10)
DX: N88.2 Stricture and stenosis of cervix uteri (principal); R14.0 Abdominal distension (gaseous); R93.89 Abnormal findings on diagnostic imaging of other specified body structures; E03.9 Hypothyroidism, unspecified
CPT/HCPCS: 58558; 00952; 85027; 86850; 86900; 86901; 88305; J7120; J2405

== ENCOUNTER → 2023-08-29 | Outpatient (CLI) | payer MEDICARE, BC, SELFPAY ==
--- NOTE | 2023-08-29 08:30 | BI_ITS ---
MAMMOGRAPHY - BILATERAL SCREENING REASON FOR EXAM: Female, 68 years old. Routine annual screening examination. PERTINENT HISTORY: Non-contributory. TECHNIQUE: Digital bilateral breast ralph (3D mammographic acquisition) in the CC and MLO projections. 2-D mediolateral oblique (MLO) and craniocaudad (CC) views of both breasts were obtained. CAD: Full Field Digital Mammography with Computer Added Detection was performed. COMPARISON: Comparison is made with prior study dated August 23, 2022 and June 12, 2021. FINDINGS: Breast Composition: The breasts are extremely dense, which lowers the sensitivity of mammography. There are no dominant masses or suspicious calcifications. Stable small benign-appearing bilateral axillary lymph nodes. No other significant abnormalities are identified. There has been no significant change since the prior study. BI/SCRN MAMM (CAD)W/RALPH BILAT IMPRESSION: Stable bilateral screening mammogram. Yearly follow-up mammogram recommended. (A) ASSESSMENT CATEGORY: BIRADS Category 2: Benign. A letter regarding these results will be sent to the patient by the facility within 30 days. Approximately 10% of breast cancers are not detected by mammography. A normal mammogram should not delay biopsy of a clinically suspicious abnormality. [id number] Electronically Signed: James Ware MD at 9:31 EST ,
--- NOTE | 2023-08-29 08:33 | BD_ITS ---
STUDY: DUAL ENERGY X-RAY ABSORPTIOMETRY / DXA REASON FOR EXAM: Female, 68 years old. [id number] TECHNIQUE: Bone Mineral Density (BMD) measurements of lumbar spine and bilateral hips were obtained. COMPARISON: Comparison is made with prior study dated March 28, 2016. FINDINGS: Lumbar Spine (L1-L4): g/cm2 (0.849) / T-score (-1.9) / Z-score (0.1) Findings are suggestive of osteopenia with a moderate fracture risk. Left Femur Total: g/cm2 (0.847) / T-score (-0.8) / Z-score (0.6) Left Femoral Neck: g/cm2 (0.799) / T-score (-0.5) / Z-score (1.2) Right Femur Total: g/cm2 (0.857) / T-score (-0.7) / Z-score (0.7) Right Femoral Neck: g/cm2 (0.804) / T-score (-0.4) / Z-score (1.3) The T-Scores on the most recent prior examination were: Lumbar Spine (L1-L4): There has been worsening of bone density since the previous examination. Left Femur Total: which represents a worsening of 6.3%. Right Femur Total: which represents a worsening of 0.5%. BD/Dexa Bone Density Study IMPRESSION: The patient is considered osteopenic as outlined below according to World Clark Organization (WHO) criteria with a moderate fracture risk. There has been worsening of bone density since the previous examination. Reference Information: The T-score is the number of standard deviations above or below the standard which is normal for young adults at their peak bone mineral density. The World Health Organization (WHO) interprets the T-scores as follows: Above -1 Normal bone density Between -1 and -2.5 Osteopenia Equal to / or below -2.5 Osteoporosis As a practical clinical guideline, osteopenia may be graded as follows: Mild -1 through -1.5 Moderate -1.6 through -2.0 Severe -2.1 through -2.4 The Z-score is the number of standard deviations above or below age-matched controls. A Z-score of less than -1.5 would be considered abnormal. References: 1. NIH Osteoporosis and Related Bone Diseases www osteo.org 2. International Society for Clinical Densitometry www iscd.org 3. National Osteoporosis Foundation www nof.org Electronically Signed: James Ware MD at 9:28 EST ,
== END | disposition home or self-care (01) ==
LOC: OPBI 08:28
PROVIDERS: PCP Internal Medicine; Referring Provider Internal Medicine; Visit Provider Internal Medicine
DX: Z12.31 Encounter for screening mammogram for malignant neoplasm of breast (principal); Z78.0 Asymptomatic menopausal state
CPT/HCPCS: 77063; 77067; 77080

== ENCOUNTER → 2024-03-31 | Outpatient (CLI) | payer MEDICARE, BC, SELFPAY ==
[2024-03-31 15:41] LABS: Vitamin D,25 Hydroxy 37.5 ng/mL
[2024-03-31 15:44] LABS: Cholesterol 172 mg/dL (200); High Density Lipoprotein 59 mg/dL; Triglycerides 108 mg/dL; Very Low Density Lipoprotein 22 mg/dL (5-40)
== END | disposition home or self-care (01) ==
LOC: LAB 13:10
PROVIDERS: PCP Internal Medicine; Referring Provider Internal Medicine; Visit Provider Internal Medicine
DX: E78.49 Other hyperlipidemia (principal); E55.9 Vitamin D deficiency, unspecified
CPT/HCPCS: 36415; 80061; 82306

== ENCOUNTER → 2024-05-12 | Outpatient (CLI) | payer MEDICARE, BC, SELFPAY ==
--- NOTE | 2024-05-12 07:20 | US_ITS ---
STUDY: ABDOMINAL ULTRASOUND - RIGHT UPPER QUADRANT REASON FOR VISIT: Female, 68 years old abd pain TECHNIQUE: Ultrasound evaluation of the right upper quadrant was performed with real-time and static wright-scale imaging. TECHNICAL QUALITY: Adequate. COMPARISON: 08/02/2022, CT 08/06/2022 FINDINGS: Liver: The liver measures 14.9 cm. There is normal echogenicity of the liver. The bile ducts are within normal limits. There is hepatic color flow. The direction of portal flow is hepatopetal. 1.7 cm round anechoic mass within the inferior right lobe of the liver consistent with a cyst. Gallbladder: Normal distended gallbladder. The gallbladder wall measures 2 mm. There is a negative sonographic Lafleur''s sign. There is no pericholecystic fluid. There are no gallstones. Common Bile Duct (C.B.D.): The common bile duct measures 6 mm. Pancreas: Normal size of the head, body and tail of the pancreas. There is normal echogenicity of the pancreas. There is no demonstrated pancreatic mass or cyst. Right Kidney: Normal size of the right kidney. The right kidney measures 10.4 cm. Normal renal cortex. The right cortex measures 1.9 cm. A 1.8 cm round hyperechoic mass of the midsection of right kidney likely consistent with a angiomyolipoma. This is unchanged when compared with the mass seen on the CT from 08/06/2022 There is no right hydronephrosis. US/Abdomen Limited IMPRESSION: Normal right upper quadrant ultrasound examination. No change in cyst in the posterior segment of the right lobe of the liver. 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 Electronically Signed: Dayday Bennett MD at 9:02 EDT ,
== END | disposition home or self-care (01) ==
PROVIDERS: PCP Internal Medicine; Referring Provider Internal Medicine; Visit Provider Internal Medicine
DX: R10.9 Unspecified abdominal pain (principal)
CPT/HCPCS: 76705

== ENCOUNTER → 2024-05-20 | Outpatient (CLI) | payer MEDICARE, BC, SELFPAY ==
--- NOTE | 2024-05-20 09:52 | NM_ITS ---
CLINICAL: 68-year-old female with history of epigastric pain. RADIONUCLIDE HEPATOBILIARY SCINTIGRAPHY COMPARISON: Abdominal ultrasound report 05/12/2024 FINDINGS: Following the intravenous administration of 5.3 mCi of 99m Tc Mebrofenin, hepatobiliary images reveal: 1. Relatively prompt and homogeneous radiopharmaceutical concentration is noted by a normal sized liver. No parenchymal defects are identified. 2. Gallbladder activity is identified at 10 minutes post radiopharmaceutical administration. 3. Small intestinal tract is observed at 19 minutes following tracer provision. 4. Washout of the radiopharmaceutical by the hepatic parenchyma appears qualitatively normal. NM/Hepatobilliary Imaging IMPRESSION: 1. NORMAL 99m Tc Mebrofenin hepatobiliary imaging examination. A. Visualization of the gallbladder within 60 minutes post radiopharmaceutical administration excludes acute cholecystitis with 97% certitude. (Logan et al, Nucl Med [place] Press pg. 35, 1980). B. Further evaluation of this individual may be undertaken utilizing CCK augmented hepatobiliary scintigraphy if clinically appropriate. (Fidel Champagne et al, J Nucl Med 32: 1695, 1990). Electronically Signed: Dayday Shields DO at 11:02 EDT ,
== END | disposition home or self-care (01) ==
LOC: NM 09:49
PROVIDERS: PCP Internal Medicine; Referring Provider Internal Medicine; Visit Provider Internal Medicine
DX: R10.13 Epigastric pain (principal)
CPT/HCPCS: 78226; A9537

== ENCOUNTER → 2024-05-25 | Outpatient (CLI) | payer MEDICARE, BC, SELFPAY ==
--- NOTE | 2024-05-25 11:51 | NM_ITS ---
CLINICAL: 68-year-old female with history of postprandial nausea. SEMI-SOLID PHASE 99m Tc SULFUR COLLOID GASTRIC EMPTYING STUDY COMPARISON: CCK augmented hepatobiliary scintigraphy report dated 05/20/2024 FINDINGS: The patient was administered 1.0 mCi of 99m Tc sulfur colloid mixed with oatmeal and consumed per os. Image acquisitions in the anterior-posterior projections were obtained for 60 minutes. There is prompt visualization of the stomach. There is no gastroesophageal reflux identified. The T ? raw data emptying was calculated to be 18.41 minutes, (Normal: 12-56 minutes). NM/Gastric Emptying Study IMPRESSION: 1. NORMAL 99m Tc sulfur colloid semi-solid phase (oatmeal) gastric emptying imaging examination. A. There is normal and preserved semi-solid phase gastric emptying compared to normal controls. (Abdulaziz et al, J Nucl Med Tech 38: 186, 2010). Electronically Signed: Dayday Shields DO at 10:13 EDT ,
== END | disposition home or self-care (01) ==
LOC: NM 11:48
PROVIDERS: PCP Internal Medicine; Referring Provider Internal Medicine; Visit Provider Internal Medicine
DX: R11.0 Nausea (principal)
CPT/HCPCS: 78264; A9541

== ENCOUNTER 2024-06-18 15:57 | Emergency (ER) | payer MEDICARE, BC, SELFPAY ==
[2024-06-18 15:59] VITALS: BP 136/73; PULSE 73; RESP 18; TEMP 35.8; O2SAT 94; BMI 26.2
--- NOTE | 2024-06-18 19:54 | CT_ITS ---
STUDY: CT CERVICAL SPINE WITHOUT CONTRAST REASON FOR EXAM: Female, 68 years old. fall RADIATION DOSAGE (If Supplied By Facility): CTDIvol = ( 18.97 ) mGy, DLP = ( 394.34 ) mGycm TECHNIQUE: High resolution transaxial imaging was performed without contrast material. Sagittal and coronal images were reconstructed. Individualized dose optimization techniques were used for this CT. The protocol utilizes one or more of the following dose reduction techniques: automated exposure control, adjustment of mA and/or kV according to patient size,and/or use of iterative reconstruction technique. COMPARISON: May 18, 2004 cervical spine radiograph. FINDINGS: Normal craniovertebral junction. Normal anterior atlantoaxial articulation. Normal odontoid process. There is reversal of the normal cervical lordosis. Normal vertebral bodies and posterior osseous elements. C2-3: Normal endplates. Normal disc height and morphology. Normal central canal and intervertebral neuroforamina. C3-4: Normal endplates. Normal disc height and morphology. Normal central canal and narrowed right intervertebral neuroforamina. C4-5: Disc space narrowing and narrowing of the neural foramina. Broad-based posterior disc marginal osteophyte. Narrowed central canal. C5-6: Disc space narrowing and narrowing of the neural foramina. Broad-based posterior disc marginal osteophyte. Narrowed central canal. C6-7: Normal endplates. Normal disc height and morphology. Normal central canal and narrowed left intervertebral neuroforamina. C7-T1: Normal endplates. Normal disc height and morphology. Normal central canal and intervertebral neuroforamina. Normal visualized soft tissue structures. CT/Spine Cervical without Contras IMPRESSION: No fracture Electronically Signed: Ulisses Rey MD at 21:31 EDT ,
--- NOTE | 2024-06-18 19:54 | RAD_ITS ---
STUDY: X-RAY - RIGHT HAND REASON FOR EXAM: Female, 68 years old. fall TECHNIQUE: 3 view(s) of the hand. COMPARISON: None. FINDINGS: Normal radiocarpal articulation. Normal distal radioulnar joint. Normal visualized carpal bones. Normal carpal articulations Normal carpometacarpal articulation of the thumb. Normal second through fifth carpometacarpal joints. Normal metacarpi. Normal metacarpophalangeal joint of the thumb. Normal interphalangeal joint of the thumb. Normal proximal and distal phalanges of the thumb. DJD PIP joint index finger. Normal proximal and distal interphalangeal joints of the second through fifth fingers. Normal phalanges of the second through fifth fingers. The soft tissue structures are unremarkable. Well-corticated. Articular calcific densities. RAD/Hand Min 3 Views IMPRESSION: No acute fracture noted Electronically Signed: Ulisses Rey MD at 21:36 EDT ,
--- NOTE | 2024-06-18 19:54 | CT_ITS ---
STUDY: CT FACIAL BONES WITHOUT CONTRAST REASON FOR EXAM: Female, 68 years old. fall RADIATION DOSAGE (If Supplied By Facility): CTDIvol = ( 29.38 ) mGy, DLP = ( 635.61 ) mGycm TECHNIQUE: The patient was scanned in a multi detector CT scanner. Sagittal and coronal images were reconstructed. Individualized dose optimization techniques were used for this CT. The protocol utilizes one or more of the following dose reduction techniques: automated exposure control, adjustment of mA and/or kV according to patient size,and/or use of iterative reconstruction technique. COMPARISON: None. FINDINGS: Right periorbital soft tissue swelling. Normal orbital haley and orbital contents. Normal nasal bones and anterior nasal spine. Normal facial bones. There is no demonstrated fracture. Bony septum deviated to the right. Normal visualized paranasal sinuses. CT/Sinus/Facial Bone IMPRESSION: Right periorbital soft tissue swelling. No blowout fracture. Electronically Signed: Ulisses Rey MD at 21:26 EDT ,
--- NOTE | 2024-06-18 19:54 | CT_ITS ---
STUDY: CT BRAIN WITHOUT CONTRAST REASON FOR EXAM: Female, 68 years old. head injury RADIATION DOSAGE (If Supplied By Facility): CTDIvol = ( 44.99 ) mGy, DLP = ( 779.24 ) mGycm TECHNIQUE: Transaxial CT imaging of the brain was performed without administration of intravenous contrast material. Individualized dose optimization techniques were used for this CT. The protocol utilizes one or more of the following dose reduction techniques: automated exposure control, adjustment of mA and/or kV according to patient size,and/or use of iterative reconstruction technique. COMPARISON: No relevant priors. FINDINGS: Normal soft tissue structures. Normal calvarium. Normal size ventricles and extra-axial spaces for the patient''s age. Normal white matter tracts of the cerebral hemispheres. Normal basal ganglia and thalami. Normal brainstem. Normal cerebellum. There is no intracranial hemorrhage. There are no findings of an acute ischemic infarction. Normal visualized paranasal sinuses. CT/Brain/Head without Contrast IMPRESSION: Normal unenhanced CT scan of the brain. Electronically Signed: Ulisses Rey MD at 21:21 EDT ,
[2024-06-18 19:57] VITALS: BP 147/78; PULSE 78; RESP 16; O2SAT 98
--- NOTE | 2024-06-18 20:00 | EDS_ITS ---
HPI <DEBORAH Castellano - Last Filed: 06/18/24 21:52> History of Present Illness Chief Complaint: Fall Narrative Narrative: Patient is a 68-year-old female with history of hyperlipidemia, hypothyroidism who presents to the emergency department for mechanical fall 4 to 5 hours ago. Patient states he was on the sidewalk when her foot got caught she fell on her right side. Patient injuries to her right foot right knee right hand right ribs right shoulder as well as a head injury. She denies any LOC. Currently not on any blood thinning medicine. Patient states that she was concerned about the laceration to her hand as well as the multiple other injuries. Patient tetanus vaccination is unknown. Patient is not take anything for pain since she has been here. [facility] <DEBORAH Castellano - Last Filed: 06/18/24 21:52> [facility] Medical History Alcohol use Anxiety Arthritis High cholesterol History of echocardiogram History of stress test Kidney stone Non-smoker Post-menopausal Status post hysteroscopy Thyroid disease Wears glasses Home Medications ?Medication ?Instructions ?Recorded ?Last Taken ?Type atorvastatin 10 mg tablet 10 mg PO QHS 04/06/19 Unknown History levothyroxine 100 mcg tablet 75 mcg PO DAILY 04/06/19 11/20/22 History escitalopram oxalate 10 mg tablet 10 mg PO DAILY 11/19/22 Unknown History misoprostol 200 mcg tablet 200 mcg PO UD 11/19/22 Unknown History Allergy/AdvReac Type Severity Reaction Status Date / Time No Known Allergies Allergy Verified 06/18/24 15:58 Surgical History H/O dilation and curettage H/O laparoscopy Social History household members: spouse number of children: 1 current occupational status: retired current occupation: Retired from [employer] department Smoking Status: Never smoker alcohol intake: current alcohol intake frequency: holidays/special occasions only substance use type: does not use seatbelt use: always do you feel safe at home: Yes additional social history: [employer]-Retired [employer] <DEBORAH Castellano - Last Filed: 06/18/24 21:52> ROS ED ROS Narrative Constitutional: Negative for fever, chills, weight loss, weakness Eyes: Negative for vision loss, vision change, double vision ENT: Negative for any sore throat, ear pain, congestion Cardiovascular: Negative for any chest pain, tightness, palpitations. Positive right-sided chest wall pain Respiratory: Negative for any cough, sputum production, hemoptysis, dyspnea, dyspnea on exertion, orthopnea Gastrointestinal: Negative for any abdominal pain, nausea, vomiting, diarrhea, constipation, blood in stool, blood in vomit : Negative for any urinary frequency, dysuria, retention, blood in urine Muscle skeletal: Negative for any neck pain, back pain. Positive for pain of the right foot right knee right shoulder right hand Neurological: Negative for any headache, syncope, dizziness Skin: Negative for any rashes, itching, abrasions. Positive for laceration to the base of the right fifth finger Psychiatric: Negative for any depression, anxiety, stress, suicidal ideation, homicidal ideation Hematologic: Negative for any excessive bruising, easy bleeding EXAM <DEBORAH Castellano - Last Filed: 06/18/24 21:52> Physical Exam Narrative Exam Narrative: Vital signs reviewed. HEET: Head normocephalic atraumatic, TMs clear bilaterally. Posterior pharynx is clear, moist mucous membranes. Nares clear bilaterally. Pupils are equal round reactive to light, negative for any hemotympanum or septal hematoma. Patient does have abrasions to the right cheek, just above the right eyebrow, no significant lacerations. Neck: Supple with no lymphadenopathy or tenderness. No signs of meningismus. Cardiac: Regular rate and rhythm no murmurs gallops or rubs, equal peripheral pulses bilaterally. Respiratory: Lungs clear to auscultation bilaterally. Positive for right sided anterior, lateral chest wall tenderness, no crepitus heard. Abdomen: Soft, nontender, nondistended. No abdominal bruit or pulsatile masses. No hepatosplenomegaly Extremities: Patient does have abrasion to the right dorsal aspect of the foot, +2 pedal pulse. Ankle was unremarkable. Right knee does show some edema, ecchymosis however patient has minimal to no pain. Right shoulder has some abrasion. Patient has a laceration just at the base of the right fifth digit on the palmar aspect. This is full-thickness and will need to be sutured. Patient is able to flex and extend this area. No signs or symptoms of tendon involvement. Neuro: Cranial nerves II through XII intact, no focal neurological deficits. Skin: Clean dry and intact with no rash, purpura, petechiae, vesicles or pustules. Multiple abrasions Backs/flank: No CVA tenderness, no midline spinal tenderness, no deformity. Psych: Normal mood and affect. No SI, HI or acute psychosis. Const Vital Signs: 06/18/24 15:59 06/18/24 19:48 06/18/24 19:57 Temperature 96.5 F L Temperature Source Temporal Pulse Rate 73 78 Respiratory Rate 18 16 Respiratory Effort Normal Non-Labored Respiratory Depth Normal Respiratory Pattern Normal Blood Pressure 136/73 H 147/78 H Blood Pressure Mean 94 101 Pulse Ox 94 98 Oxygen Delivery Method Room Air Room Air Room Air 06/18/24 21:50 Temperature 98 F Temperature Source Pulse Rate 68 Respiratory Rate 16 Respiratory Effort Respiratory Depth Respiratory Pattern Blood Pressure 147/78 H Blood Pressure Mean 101 Pulse Ox 99 Oxygen Delivery Method Positive well nourished and well developed General Appearance ED: well developed <Dr. Mitch Yeung DO - Last Filed: 06/18/24 23:44> Physical Exam Const Vital Signs: 06/18/24 15:59 06/18/24 19:48 06/18/24 19:57 Temperature 96.5 F L Temperature Source Temporal Pulse Rate 73 78 Respiratory Rate 18 16 Respiratory Effort Normal Non-Labored Respiratory Depth Normal Respiratory Pattern Normal Blood Pressure 136/73 H 147/78 H Blood Pressure Mean 94 101 Pulse Ox 94 98 Oxygen Delivery Method Room Air Room Air Room Air 06/18/24 21:50 Temperature 98 F Temperature Source Pulse Rate 68 Respiratory Rate 16 Respiratory Effort Respiratory Depth Respiratory Pattern Blood Pressure 147/78 H Blood Pressure Mean 101 Pulse Ox 99 Oxygen Delivery Method MDM <DEBORAH Castellano - Last Filed: 06/18/24 21:52> MDM Radiography Diagnostic Testing: Clinical Impression(s) from Imaging Studies Brain CT 06/18/24 19:54 IMPRESSION: Normal unenhanced CT scan of the brain. Electronically Signed: Ulisses Rey MD at 21:21 EDT Reading Location ID and State: [facility] / [place] Tel , Service support , Cervical Spine CT 06/18/24 19:54 IMPRESSION: No fracture Electronically Signed: Ulisses Rey MD at 21:31 EDT Reading Location ID and State: [address] [place] [address] Tel , Service support , Facial/Sinus 06/18/24 19:54 IMPRESSION: Right periorbital soft tissue swelling. No blowout fracture. Electronically Signed: Ulisses Rey MD at 21:26 EDT Reading Location ID and State: [address] [place] [address] Tel , Service support , Hand X-Ray 06/18/24 19:54 IMPRESSION: No acute fracture noted Electronically Signed: Ulisses Rey MD at 21:36 EDT Reading Location ID and State: [address] [place] [address] Tel , Service support , Foot X-Ray 06/18/24 20:25 IMPRESSION: Normal x-ray examination of the foot. Electronically Signed: Ulisses Rey MD at 21:40 EDT Reading Location ID and State: [facility] / [place] Tel , Service support , Ribs w/Chest X-Ray 06/18/24 20:25 IMPRESSION: RIBS: Normal x-ray examination of the ribs. CHEST: COPD. No pneumothorax. Electronically Signed: Ulisses Rey MD at 21:33 EDT Reading Location ID and State: [facility] / [place] Tel , Service support , Treatment and Re-Evaluation :: Differential diagnosis includes however is not limited to: Concussion, facial fracture, intracranial hemorrhage, skull fracture, concussion, finger fracture, open fracture, foot fracture, multiple abrasions, contusions Patient appears to be in no obvious distress vital signs are stable, patient is nontoxic-appearing. Presenting to the emergency department after mechanical fall. After my physical examination, patient will receive a CT scan the brain cervical spine as well as maxillofacial bones. Patient's x-rays of the right ribs will be obtained, right hand, right foot. Patient does have a laceration to the right hand that will need to be anesthetized, irrigated copiously as well as sutured. Tetanus vaccination will be updated, patient received Tylenol here. Patient will need to be reevaluated. All radiologic examinations were read, reviewed by the emergency department attending. From these reads, a plan of care will be put in place. Procedure note: Patient has a 2 cm horizontal laceration along the base of the right fifth finger. Sterile gloves, sterile drapes were used. Area was anesthetized with lidocaine with epinephrine. I was able copiously irrigate the wound with 250 cc of normal saline. I was able to place 8 simple interrupted sutures of 4-0 Ethilon. Edges approximated nicely. Finger splint be applied. Patient CT scan of the brain was negative. CT of cervical spine showed no fracture. CT scan of the maxillofacial bones does show some soft tissue swelling however no fracture. X-rays showed a normal x-ray x-ray of the foot, normal x-ray of the ribs as well as the hand. Patient will have the sutures removed in 10 days. She will follow-up outpatient. She will continue to perform gentle stretching, ice and heat. She instructed return for any worsening symptoms. Concussion protocol was discussed with the patient. Patient stable for discharge. <Dr. Mitch Yeung, DO - Last Filed: 06/18/24 23:44> [facility] History & Record Review Discussion w/independent historian: Patient and Significant other Radiography Diagnostic Testing: Clinical Impression(s) from Imaging Studies Brain CT 06/18/24 19:54 IMPRESSION: Normal unenhanced CT scan of the brain. Electronically Signed: Ulisses Rey MD at 21:21 EDT , Cervical Spine CT 06/18/24 19:54 IMPRESSION: No fracture Electronically Signed: Ulisses Rey MD at 21:31 EDT , Facial/Sinus 06/18/24 19:54 IMPRESSION: Right periorbital soft tissue swelling. No blowout fracture. Electronically Signed: Ulisses Rey MD at 21:26 EDT Reading Location ID and State: [facility] / [place] Tel , Service support , Hand X-Ray 06/18/24 19:54 IMPRESSION: No acute fracture noted Electronically Signed: Ulisses Rey MD at 21:36 EDT Reading Location ID and State: [facility] / [place] Tel , Service support , Foot X-Ray 06/18/24 20:25 IMPRESSION: Normal x-ray examination of the foot. Electronically Signed: Ulisses Rey MD at 21:40 EDT Reading Location ID and State: [facility] / [place] Tel , Service support , Ribs w/Chest X-Ray 06/18/24 20:25 IMPRESSION: RIBS: Normal x-ray examination of the ribs. CHEST: COPD. No pneumothorax. Electronically Signed: Ulisses Rey MD at 21:33 EDT , Treatment and Re-Evaluation :: Differential diagnosis includes however is not limited to: Concussion, facial fracture, intracranial hemorrhage, skull fracture, concussion, finger fracture, open fracture, foot fracture, multiple abrasions, contusions Patient appears to be in no obvious distress vital signs are stable, patient is nontoxic-appearing. Presenting to the emergency department after mechanical fall. After my physical examination, patient will receive a CT scan the brain cervical spine as well as maxillofacial bones. Patient's x-rays of the right ribs will be obtained, right hand, right foot. Patient does have a laceration to the right hand that will need to be anesthetized, irrigated copiously as well as sutured. Tetanus vaccination will be updated, patient received Tylenol here. Patient will need to be reevaluated. All radiologic examinations were read, reviewed by the emergency department attending. From these reads, a plan of care will be put in place. Procedure note: Patient has a 2 cm horizontal laceration along the base of the right fifth finger. Sterile gloves, sterile drapes were used. Area was anesthetized with lidocaine with epinephrine. I was able copiously irrigate the wound with 250 cc of normal saline. I was able to place 8 simple interrupted sutures of 4-0 Ethilon. Edges approximated nicely. Finger splint be applied. Patient CT scan of the brain was negative. CT of cervical spine showed no fracture. CT scan of the maxillofacial bones does show some soft tissue swelling however no fracture. X-rays showed a normal x-ray x-ray of the foot, normal x-ray of the ribs as well as the hand. Patient will have the sutures removed in 10 days. She will follow-up outpatient. She will continue to perform gentle stretching, ice and heat. She instructed return for any worsening symptoms. Concussion protocol was discussed with the patient. Patient stable for discharge. I have personally performed a face to face assessment of the patient and have reviewed the JORDIN Note. I performed a substantive portion of the visit including all aspects of the following. My johnson findings include: History is 68-year-old female sustained a fall injuring her right face and head as well as chest hand (with laceration) and foot. No loss of consciousness. Exam is patient has contusion right forehead facial region. No malocclusion. No obvious dental trauma. No septal hematoma. GCS is 15 seen. There is a laceration along the medial aspect of the right fifth MTP region. She has tenderness along the right mid axillary ribs. The right foot is minimally tender but more discomfort with moving. There is no significant swelling or ecchymosis seen. Lung sounds are clear and equal. Medical Decison Making CT of the brain cervical spine and maxillofacial bones did not demonstrate an obvious fracture or intracranial hemorrhage. My independent interpretation of the plain films of the foot rib series with PA chest and the hand did not demonstrate an obvious fracture. Laceration was repaired by nurse practitioner. Local wound care discussed with patient return if worsening or concerns Discharge Plan Triage Chief Complaint: Fall ED Midlevel Provider: Denilson Mora ED Provider: Mitch Yeung Dx/Rx/DC Orders Clinical Impression: Fall, Abrasion, Concussion, Hand laceration Instructions: Concussion Dc, ED Abrasion, ED Laceration Extremity Prescriptions: No Action atorvastatin 10 MG tablet 10 mg PO QHS levothyroxine 100 MCG tablet 75 mcg PO DAILY escitalopram oxalate 10 mg tablet 10 mg PO DAILY misoprostol 200 mcg tablet 200 mcg PO UD Patient Comments: TAKE 1 TABLET BY MOUTH ONCE DAILY Primary Care Provider: Skyla Crawford Referrals: Skyla Crawford, [Primary Care Provider] - Activity Restrictions/Additional Instructions: Perform gentle stretching, ice and heat. Keep the area clean and dry on your hand. Sutures out in 10 days. You may follow-up with your PCP. Return for any worsening symptoms. Print Language: Anguillan Disposition Disposition: Home, Self Care Discharge Date/Time: 06/18/24 22:03
[2024-06-18] MEDS: Acetaminophen 500 MG Tablet 1000 MG PO (20:03)
[2024-06-18] MEDS: Lidocaine 1% /Epi 1:100 (20ml) 20 ML Vial INFILT (20:04)
--- NOTE | 2024-06-18 20:25 | RAD_ITS ---
STUDY: X-RAY - UNILATERAL RIBS ( RIGHT ) WITH CHEST REASON FOR EXAM: Female, 68 years old. fall TECHNIQUE - RIBS: 4 view(s) of the ribs. TECHNIQUE - CHEST: 1 view frontal COMPARISON: None. FINDINGS - RIBS: Normal visualized ribs without a demonstrated fracture. FINDINGS - CHEST: Lungs are hyperaerated. The lungs are clear and expanded. There is no demonstrated pleural abnormality. Normal size heart. Normal mediastinum and mati. Normal visualized pulmonary arteries. Normal visualized aortic arch and descending thoracic aorta. Mild scoliosis. Normal visualized ribs, clavicles, and shoulders. There is no demonstrated abnormality of the visualized soft tissue structures of the upper abdomen. RAD/Ribs Uni Min 3V w/PA Chest IMPRESSION: RIBS: Normal x-ray examination of the ribs. CHEST: COPD. No pneumothorax. Electronically Signed: Ulisses Rey MD at 21:33 EDT ,
--- NOTE | 2024-06-18 20:25 | RAD_ITS ---
STUDY: X-RAY - RIGHT FOOT CLINICAL: Female, 68 years old. fall TECHNIQUE: 3 view(s) of the foot. COMPARISON: None. FINDINGS: Normal talus, calcaneus, and tarsal bones. Normal visualized subtalar, talonavicular, calcaneocuboid, tarsal and tarsometatarsal articulations. Normal metatarsi. Normal metatarsophalangeal joint of the great toe. Normal tibial and fibular sesamoid bones. Normal interphalangeal joint of the great toe. Normal phalanges of the great toe. Normal second through fifth metatarsophalangeal joints. Normal interphalangeal joints and phalanges of the lesser toes. The soft tissue structures are unremarkable. RAD/Foot min 3 Views IMPRESSION: Normal x-ray examination of the foot. Electronically Signed: Ulisses Rey MD at 21:40 EDT ,
[2024-06-18] MEDS: Diphth,Pertuss(Acell),Tet Vac 0.5 ML Vial IM (21:39)
[2024-06-18 21:50] VITALS: BP 147/78; PULSE 68; RESP 16; TEMP 36.6; O2SAT 99
== END 2024-06-18 22:03 | disposition home or self-care (01) ==
PROVIDERS: Emergency Provider Emergency Medicine; PCP Internal Medicine; Visit Provider Emergency Medicine
DX: S61.216A Laceration without foreign body of right little finger without damage to nail, initial encounter (principal); J44.9 Chronic obstructive pulmonary disease, unspecified; S06.0X0A Concussion without loss of consciousness, initial encounter; E78.00 Pure hypercholesterolemia, unspecified; W18.39XA Other fall on same level, initial encounter; Y92.480 Sidewalk as the place of occurrence of the external cause; E03.9 Hypothyroidism, unspecified; F41.9 Anxiety disorder, unspecified; Z79.899 Other long term (current) drug therapy; S90.811A Abrasion, right foot, initial encounter; Z23 Encounter for immunization
CPT/HCPCS: 12001; 70450; 70486; 71101; 72125; 73130; 73630; 90471; 90715; 99284

== ENCOUNTER → 2024-09-01 | Outpatient (CLI) | payer MEDICARE, BC, SELFPAY | END | disposition home or self-care (01) | LOC: OPBI 09:10 | PROVIDERS: PCP Internal Medicine; Referring Provider Internal Medicine; Visit Provider Internal Medicine | DX: Z12.31 Encounter for screening mammogram for malignant neoplasm of breast (principal) | CPT/HCPCS: 77063; 77067 ==

== ENCOUNTER → 2025-09-02 | Outpatient (CLI) | payer MEDICARE, BC, SELFPAY ==
--- NOTE | 2025-09-02 08:00 | BI_ITS ---
EXAM: SCRN MAMM (CAD)W/RALPH BILAT DATE: 09/02/2025 CLINICAL HISTORY: F, Age 70 y/o , SCRN MAMM (CAD)W/RALPH BILAT No family history. TECHNIQUE: Procedure Code: [id number] Modality: MG Procedure: SCRN MAMM (CAD)W/RALPH BILAT COMPARISON: Prior exam(s) dated September 01, 2024.. FINDINGS: TISSUE DENSITY: The breasts are extremely dense, which lowers the sensitivity of mammography. Bilateral Breast Mammographic Findings: No significant masses, calcifications or other abnormalities are identified. No suspicious masses, areas of developing architectural distortion, or suspicious calcifications. There has been no significant interval change. BI/SCRN MAMM (CAD)W/RALPH BILAT IMPRESSION: Stable bilateral screening mammogram. OVERALL FINAL ASSESSMENT BI-RADS 1: NEGATIVE. RECOMMENDATION: Routine annual follow-up in 1 Year Additional Recommendation none A letter with findings and recommendations will be mailed to the patient. Reading Location: [facility]
--- NOTE | 2025-09-02 08:00 | BD_ITS ---
PROCEDURE: DEXA BONE DENSITY STUDY 09/02/2025 REASON FOR EXAM: F, age 70 y/o . Postmenopausal. TECHNIQUE: Procedure Code: BDDBD Modality: DX Procedure: DEXA BONE DENSITY STUDY COMPARISON: August 29, 2023. FINDINGS: BMD and T-SCORES Lumbar spine: 0.889 g/cm2, T-score -1.5 Levels: L1 through L4 Change from prior: Improvement of 4.7%. Left femoral neck: 0.741 g/cm2, T-score -1.0 Femoral neck comparison data not recommended for monitoring change. Left total hip: 0.844 g/cm2, T-score -0.8 Change from prior: Loss of 0.4%. Right femoral neck: 0.733 g/cm2, T-score -1.0 Femoral neck comparison data not recommended for monitoring change. Right total hip: 0.829 g/cm2, T-score -0.9 Change from prior: Loss of 3.3%. The World Health Organization has defined the following categories based on bone density: Normal bone density: T-score equal to or greater than -1.0 Osteopenia: T-score between -1.0 and -2.5 Osteoporosis: T-score equal to or less than -2.5 FRAX (or Comparable) Fracture Risk Assessment: 10 Year Probability of Fracture: Major Osteoporotic Fracture: 8.8% Hip Fracture: 0.9% (Note: FRAX is not to be reported in setting of normal range bone density, osteoporosis on DEXA, known history of osteoporosis, prior osteoporotic hip or vertebral fracture, or for any patient undergoing pharmacological treatment for bone loss.) The National Osteoporosis Foundation (NOF) recommends pharmacological treatment for patients with a FRAX 10-year risk of 3% or higher for a hip fracture, or 20% or higher for a major osteoporotic fracture, to prevent osteoporosis and reduce fracture risk. The patient does meet the pharmacological treatment recommendations for prevention of osteoporosis. BD/Dexa Bone Density Study IMPRESSION: OSTEOPENIA. Recommend follow-up as clinically warranted. Reading Location: [id number]
== END | disposition home or self-care (01) ==
LOC: OPBD 07:58
PROVIDERS: PCP Internal Medicine; Referring Provider Internal Medicine; Visit Provider Internal Medicine
DX: Z12.31 Encounter for screening mammogram for malignant neoplasm of breast (principal); Z78.0 Asymptomatic menopausal state
CPT/HCPCS: 77063; 77067; 77080